=== PATIENT | female | born 1970 | race Caucasian/White ===

== ENCOUNTER 2020-02-19 13:14 | Emergency (ER) | payer BC, OTHER ==
[2020-02-19 13:20] VITALS: BP 152/72; PULSE 68; RESP 18; TEMP 98.5
[2020-02-19] MEDS ORDERED: NYSTATIN 100,000 UNIT/GM POWD 15 GM TOPICAL STA (13:46)
[2020-02-19] MEDS ORDERED: diphenhydrAMINE 50 MG/ML 1 ML VIAL IVP STA (13:53)
[2020-02-19 14:03] LABS: Basophils # (A) 0.1 k/uL (0-0.2); Basophils % (A) 1 %; Eosinophils # (A) 0.2 k/uL (0-0.7); Eosinophils % (A) 2 %; HCT 44.4 % (34.0-46.0); HGB 14.8 gm/dL (11.4-16.0); Lymphocytes # (A) 2.9 k/uL (1.0-4.8); Lymphocytes % (A) 33 %; MCHC 33.3 g/dL (31.0-37.0); MCV 93.1 fL (80.0-100.0); Mean Platelet Volume 9.3; Monocytes # (A) 0.4 k/uL (0-1.0); Monocytes % (A) 4 %; Neutrophils # (A) 5.2 k/uL (1.3-7.7); Neutrophils % (A) 58 %; Platelet Count 222 k/uL (150-450); RBC 4.77 m/uL (3.80-5.40); RDW 12.4 % (11.5-15.5); WBC 8.9 k/uL (3.8-10.6)
--- NOTE | 2020-02-19 14:08 | ED ---
General Adult HPI - General Source: patient, RN notes reviewed, old records reviewed Mode of arrival: ambulatory Limitations: no limitations <Alexei Phillips - Last Filed: 02/19/20 14:08> <Juju Diaz - Last Filed: 02/19/20 14:56> - General Chief complaint: Skin/Abscess/Foreign Body Stated complaint: Rash Time Seen by Provider: 02/19/20 13:29 - History of Present Illness Initial comments: 49-year-old female patient presents to the emergency department today for evaluation of rash. Patient states for the last week she has had a rash beneath the left breast and to the fold between her abdomen and upper thighs. Patient states the rash does itch and is also burning. Patient states that she did see her physician was given a Medrol Dosepak and a steroid cream to apply. Patient states her rash is worsened since using those medications. She denies any fevers or chills. Denies any new exposures including soaps, lotions, creams, detergents, foods, or medications. Patient does report being "prediabetic". Patient denies any recent rash, fever, chills, cough, shortness of breath, chest pain, abdominal pain, nausea, vomiting, diarrhea, constipation, back pain, numbness, tingling, dizziness, weakness, hematuria, dysuria, urinary urgency, urinary frequency, headache, visual changes, or any other complaints. (Juju Diaz) - Related Data Home Medications Medication Instructions Recorded Confirmed Citalopram Hydrobromide 20 mg PO DAILY 04/01/16 04/01/16 [Citalopram HBr] Hydrocodone/Acetaminophen [[place] 1 tab PO BID PRN 04/01/16 04/01/16 10-325] Metoprolol Tartrate 25 mg PO BID 04/01/16 04/01/16 Simvastatin [Zocor] 20 mg PO HS 04/01/16 04/01/16 lisinopriL [Zestril] 20 mg PO DAILY 04/01/16 04/01/16 metFORMIN HCL [Glucophage] 500 mg PO DAILY 04/01/16 04/01/16 Previous Rx's Medication Instructions Recorded hydrOXYzine HCL [Atarax] 50 mg PO QID PRN #30 tab 04/01/16 Nystatin 30 gm TP BID #30 cream..g. 02/19/20 Allergies Allergy/AdvReac Type Severity Reaction Status Date / Time ibuprofen Allergy Unknown Verified 04/01/16 00:19 Review of Systems ROS Other: All systems not noted in ROS Statement are negative. <Alexei Phillips - Last Filed: 02/19/20 14:08> ROS Other: All systems not noted in ROS Statement are negative. <Juju Diaz - Last Filed: 02/19/20 14:56> ROS Statement: Those systems with pertinent positive or pertinent negative responses have been documented in the HPI. Past Medical History Past Medical History: Hyperlipidemia, Hypertension Additional Past Medical History / Comment(s): Glaucoma History of Any Multi-Drug Resistant Organisms: None Reported Past Surgical History: Orthopedic Surgery Additional Past Surgical History / Comment(s): L knee sx Past Psychological History: No Psychological Hx Reported Smoking Status: Current every day smoker Past Alcohol Use History: Occasional Past Drug Use History: None Reported <Alexei Phillips - Last Filed: 02/19/20 14:08> General Exam Limitations: no limitations <Alexei Phillips - Last Filed: 02/19/20 14:08> General appearance: alert, in no apparent distress, other (Physical well-d eveloped, well-nourished adult female patient in no acute distress. Vital signs upon presentation are temperature 98.5F, pulse 68, respirations 18, blood pressure 152/72) Respiratory exam: Present: normal lung sounds bilaterally. Absent: respiratory distress, wheezes, rales, rhonchi, stridor Cardiovascular Exam: Present: regular rate, normal rhythm, normal heart sounds. Absent: systolic murmur, diastolic murmur, rubs, gallop, clicks Neurological exam: Present: alert, oriented X3, CN II-XII intact Psychiatric exam: Present: normal affect, normal mood Skin exam: Present: warm, dry, intact, normal color, rash (Erythematous flat rash noted to the skin fold between abdomen and thighs, there are satellite lesions surrounding. Similar rash noted to the area beneath the left breast, also satellite lesions noted. Lesions are nonvesicular and nontender petechial.) <Juju Diaz - Last Filed: 02/19/20 14:56> Course Vital Signs 02/19/20 13:15 Temperature 98.5 F Pulse Rate 68 Respiratory 18 Rate Blood Pressure 152/72 Medical Decision Making - Lab Data Result diagrams: 02/19/20 13:44 <Alexei Phillips - Last Filed: 02/19/20 14:08> - Lab Data Result diagrams: 02/19/20 13:44 02/19/20 13:44 <Juju Diaz - Last Filed: 02/19/20 14:56> - Medical Decision Making 49-year-old female patient presents to the emergency department today for evaluation of rash to the lower abdomen and thighs and to the left breast. Physical examination does reveal a flat erythematous rash between the skin folds of the abdomen and upper thighs as well as beneath the left breast. There are satellite lesions. Rash did worsen after steroids. We will treat as a fungal rash with nystatin cream and powder. She'll be discharged to follow-up with her primary care physician for recheck in 1-2 days. Return parameters were discussed in detail. She verbalizes understanding and agrees with this plan. (Juju Diaz) - Lab Data Lab Results 02/19/20 02/19/20 Range/Units 13:44 13:44 WBC 8.9 (3.8-10.6) k/uL RBC 4.77 (3.80-5.40) m/uL Hgb 14.8 (11.4-16.0) gm/dL Hct 44.4 (34.0-46.0) % MCV 93.1 (80.0-100.0) fL MCH 31.0 (25.0-35.0) pg MCHC 33.3 (31.0-37.0) g/dL RDW 12.4 (11.5-15.5) % Plt Count 222 (150-450) k/uL Neutrophils % 58 % Lymphocytes % 33 % Monocytes % 4 % Eosinophils % 2 % Basophils % 1 % Neutrophils # 5.2 (1.3-7.7) k/uL Lymphocytes # 2.9 (1.0-4.8) k/uL Monocytes # 0.4 (0-1.0) k/uL Eosinophils # 0.2 (0-0.7) k/uL Basophils # 0.1 (0-0.2) k/uL Sodium 139 (137-145) mmol/L Potassium 4.6 (3.5-5.1) mmol/L Chloride 104 (98-107) mmol/L Carbon Dioxide 23 (22-30) mmol/L Anion Gap 12 mmol/L BUN 11 (7-17) mg/dL Creatinine 0.80 (0.52-1.04) mg/dL Est GFR (CKD-EPI)AfAm >90 (>60 ml/min/1.73 sqM) Est GFR (CKD-EPI)NonAf 86 (>60 ml/min/1.73 sqM) Glucose 99 (74-99) mg/dL Calcium 10.4 H (8.4-10.2) mg/dL Total Bilirubin 0.8 (0.2-1.3) mg/dL AST 54 H (14-36) U/L ALT 56 H (4-34) U/L Alkaline Phosphatase 93 (38-126) U/L Total Protein 7.8 (6.3-8.2) g/dL Albumin 4.9 (3.5-5.0) g/dL Disposition <Alexei Phillips - Last Filed: 02/19/20 14:08> Is patient prescribed a controlled substance at d/c from ED?: No Time of Disposition: 14:47 <Juju Diaz - Last Filed: 02/19/20 14:56> Clinical Impression: Rash Disposition: HOME SELF-CARE Condition: Stable Instructions (If sedation given, give patient instructions): Acute Rash (ED) Additional Instructions: Apply cream three times per day. Follow up with your primary care physician for recheck in 1-2 days. Return to the emergency department immediately for any new, worsening, or concerning symptoms. Prescriptions: Nystatin 30 gm TP BID #30 cream..g. Referrals: Milan Bonds MD [Primary Care Provider] - 1-2 days
[2020-02-19 14:16] LABS: ALT 56 U/L (4-34); AST 54 U/L (14-36); African American GFR (CKD) >90 (>60 ml/min/1.73 sqM); Albumin 4.9 g/dL (3.5-5.0); Alkaline Phosphatase 93 U/L (38-126); Anion Gap 12 mmol/L; Blood Urea Nitrogen 11 mg/dL (7-17); Calcium 10.4 mg/dL (8.4-10.2); Carbon Dioxide 23 mmol/L (22-30); Chloride 104 mmol/L (98-107); Glucose 99 mg/dL (74-99); Non-African American GFR(CKD) 86 (>60 ml/min/1.73 sqM); Potassium 4.6 mmol/L (3.5-5.1); Sodium 139 mmol/L (137-145); Total Bilirubin 0.8 mg/dL (0.2-1.3); Total Protein 7.8 g/dL (6.3-8.2)
== END 2020-02-19 14:53 | disposition home or self-care (01) ==
LOC: EC 13:14
DX: R21 Rash and other nonspecific skin eruption (principal); I10 Essential (primary) hypertension; E78.5 Hyperlipidemia, unspecified; Z79.899 Other long term (current) drug therapy; Z79.84 Long term (current) use of oral hypoglycemic drugs; Z88.6 Allergy status to analgesic agent
CPT/HCPCS: 36415; 80053; 85025; 99283; 96374; J1200

== ENCOUNTER 2021-04-07 11:12 | Observation (INO) | payer OTHER ==
[2021-04-07] MEDS ORDERED: ASPIRIN 81 MG PO STA (11:49)
[2021-04-07 12:15] LABS: Basophils # (A) 0.1 k/uL (0-0.2); Basophils % (A) 1 %; Eosinophils # (A) 0.2 k/uL (0-0.7); Eosinophils % (A) 2 %; HGB 13.1 gm/dL (11.4-16.0); Lymphocytes # (A) 2.8 k/uL (1.0-4.8); Lymphocytes % (A) 35 %; MCH 31.2 pg (25.0-35.0); MCHC 32.8 g/dL (31.0-37.0); MCV 95.1 fL (80.0-100.0); Mean Platelet Volume 9.4; Monocytes # (A) 0.4 k/uL (0-1.0); Monocytes % (A) 5 %; Neutrophils # (A) 4.3 k/uL (1.3-7.7); Neutrophils % (A) 55 %; Platelet Count 181 k/uL (150-450); RBC 4.21 m/uL (3.80-5.40); WBC 7.8 k/uL (3.8-10.6)
[2021-04-07 12:16] LABS: Appearance,Urine Clear (Clear); Bilirubin,Urine Negative (Negative); Blood,Urine Negative (Negative); Color,Urine Light Yellow; Glucose,Urine (UA) Negative (Negative); Ketones,Urine Negative (Negative); Leukocyte Esterase,Urine Negative (Negative); Nitrite,Urine Negative (Negative); PH, Urine 5.5 (5.0-8.0); Protein,Urine Negative (Negative); Specific Gravity,Urine 1.002 (1.001-1.035); Urobilinogen,Urine <2.0 mg/dL (<2.0)
--- NOTE | 2021-04-07 12:29 | XR ---
EXAMINATION TYPE: XR chest 2V DATE OF EXAM: 04/07/2021 COMPARISON: NONE HISTORY: Shortness of breath TECHNIQUE: Frontal and lateral views of the chest are obtained. FINDINGS: Scattered senescent parenchymal changes noted. Hyperinflation compatible with COPD. No evidence for infiltrate. No evidence for atelectasis. Heart size is stable. Mediastinal structures are stable and grossly unremarkable. No evidence for hilar prominence. Degenerative changes dorsal spine. IMPRESSION: 1. No evidence for acute pulmonary disease.
--- NOTE | 2021-04-07 12:37 | ED ---
Chest Pain HPI - General Chief Complaint: Chest Pain Stated Complaint: Chest discomfort Time Seen by Provider: 04/07/21 11:32 Source: patient, RN notes reviewed, old records reviewed Mode of arrival: ambulatory Limitations: no limitations - History of Present Illness Initial Comments: Patient is a 50-year-old female with history of hypertension, hyperlipidemia, presenting to the emergency Department with complaints of intermittent chest discomfort over the past 4 days. She states she noticed some pain in her left upper back about 4 days ago that sometimes radiates into her chest. She states she feels intermittent very sharp chest pains over the past couple days. She states the pains last a few seconds and go away. There is no alleviating or aggravating factors. She did have a stress test many years ago with no abnormal findings. No history of heart disease. She is a smoker. She does admit to some mild nausea over the past couple days and just "not feeling right." Her appetite has been the same, no fevers or cough. No abdominal pain. She has no further complaints at this time. Upon arrival to the ER, blood pressure was elevated at 178/116, rest of vitals normal. - Related Data Home Medications Medication Instructions Recorded Confirmed Hydrocodone/Acetaminophen [[place] 1 tab PO BID PRN 04/01/16 04/07/21 10-325] Metoprolol Tartrate 25 mg PO BID 04/01/16 04/07/21 metFORMIN HCL [Glucophage] 500 mg PO BID 04/01/16 04/07/21 Cetirizine HCl 10 mg PO DAILY 04/07/21 04/07/21 Latanoprost [Xalatan 0.005%] 1 drop BOTH EYES HS 04/07/21 04/07/21 Levothyroxine Sodium [Synthroid] 75 mcg PO DAILY 04/07/21 04/07/21 Losartan Potassium 100 mg PO DAILY 04/07/21 04/07/21 Montelukast Sodium [Singulair] 10 mg PO HS 04/07/21 04/07/21 Omeprazole [PriLOSEC] 20 mg PO DAILY 04/07/21 04/07/21 PARoxetine HCL [Paxil] 20 mg PO DAILY 04/07/21 04/07/21 Allergies Allergy/AdvReac Type Severity Reaction Status Date / Time ibuprofen Allergy Unknown Verified 04/07/21 12:52 Review of Systems ROS Statement: Those systems with pertinent positive or pertinent negative responses have been documented in the HPI. ROS Other: All systems not noted in ROS Statement are negative. EKG Findings - EKG Comments: EKG Findings:: Normal sinus rhythm, normal ECG, no signs of acute ST segment elevation. Ventricular rate 60, PA interval 154, QT 406. Past Medical History Past Medical History: Hyperlipidemia, Hypertension Additional Past Medical History / Comment(s): Glaucoma History of Any Multi-Drug Resistant Organisms: None Reported Past Surgical History: Orthopedic Surgery Additional Past Surgical History / Comment(s): L knee sx Past Psychological History: No Psychological Hx Reported Smoking Status: Former smoker Past Alcohol Use History: Occasional Past Drug Use History: None Reported General Exam - General Exam Comments Initial Comments: GENERAL: Patient is well-developed and well-nourished. Patient is nontoxic and in no acute distress. HEAD: Atraumatic, normocephalic. EYES: Pupils equal round and reactive to light, extraocular movements intact, sclera anicteric, conjunctiva are normal. Eyelids were unremarkable. ENT: Nares patent, oropharynx clear without exudates. Moist mucous membranes. NECK: Normal range of motion, supple without lymphadenopathy or JVD. LUNGS: Unlabored respirations. Breath sounds clear to auscultation bilaterally and equal. No wheezes rales or rhonchi. HEART: Regular rate and rhythm without murmurs, rubs or gallops. ABDOMEN: Soft, nontender, normoactive bowel sounds. No guarding, no rebound. No masses appreciated. MUSCULOSKELETAL: Normal extremities with adequate strength and normal range of motion, no pitting or edema. No clubbing or cyanosis. NEUROLOGICAL: Patient is alert and oriented x 3. Symmetrical smile. Normal speech, normal gait. PSYCH: Normal mood, normal affect. SKIN: Warm, Dry, normal turgor, no rashes or lesions noted. Limitations: no limitations Course Vital Signs 04/07/21 04/07/21 04/07/21 11:17 11:40 13:05 Temperature 98 F Pulse Rate 60 59 L 58 L Respiratory 18 18 18 Rate Blood Pressure 178/116 164/99 140/85 O2 Sat by Pulse 99 98 [address] [facility] Patient is a 50-year-old female history of hypertension, presenting from intermittent chest pains over the past 4 days. No shortness of breath, no fevers. She did arrive slightly hypertensive but otherwise vitals normal. EKG reads normal sinus rhythm. This x-ray showed no acute process, labs are unremarkable including a normal troponin, normal d-dimer. Covid test is negative. Patient be admitted for chest pain rule out, serial troponins. Patient is agreeable to this plan of care. Patient accepted by Dr. Reddy, with cardio consult. Case discussed with Dr. Larson. Disposition Clinical Impression: Chest pain Disposition: ADMITTED IP TO THIS HOSP Condition: Stable Referrals: Milan Bonds MD [Primary Care Provider] - 1-2 days Decision Date: 04/07/21 Decision Time: 13:11
[2021-04-07 12:43] LABS: INR 0.9 (<1.2); Partial Thromboplastin Time 22.3 sec (22.0-30.0); Prothrombin Time 9.5 sec (9.0-12.0)
[2021-04-07 12:45] LABS: ALT 71 U/L (4-34); AST 51 U/L (14-36); African American GFR (CKD) >90 (>60 ml/min/1.73 sqM); Albumin 4.2 g/dL (3.5-5.0); Alkaline Phosphatase 71 U/L (38-126); Anion Gap 9 mmol/L; Blood Urea Nitrogen 8 mg/dL (7-17); Calcium 9.9 mg/dL (8.4-10.2); Carbon Dioxide 22 mmol/L (22-30); Chloride 107 mmol/L (98-107); Glucose 95 mg/dL (74-99); Magnesium 1.8 mg/dL (1.6-2.3); Non-African American GFR(CKD) >90 (>60 ml/min/1.73 sqM); Potassium 4.8 mmol/L (3.5-5.1); Sodium 138 mmol/L (137-145); Total Bilirubin 0.4 mg/dL (0.2-1.3); Total Protein 6.8 g/dL (6.3-8.2)
[2021-04-07] MEDS ORDERED: NITROGLYCERIN SL TABS 0.4 MG TAB SUBLINGUAL PRN (13:11)
--- NOTE | 2021-04-07 16:35 | ECHOF ---
Referral Reason:chest pain MEASUREMENTS -------- HEIGHT: 162.6 cm WEIGHT: 73.5 kg BP: RVIDd: 2.3 cm (< 3.3) IVSd: 0.9 cm (0.6 - 1.1) LVIDd: 4.5 cm (3.9 - 5.3) LVPWd: 1.2 cm (0.6 - 1.1) IVSs: 1.2 cm LVIDs: 3.4 cm LVPWs: 1.4 cm LA Diam: 3.4 cm (2.7 - 3.8) LAESV Index (A-L): 19.79 ml/m Ao Diam: 2.7 cm (2.0 - 3.7) AV Cusp: 1.6 cm (1.5 - 2.6) LA Diam: 3.7 cm (2.7 - 3.8) MV EXCURSION: 19.089 mm (> 18.000) MV EF SLOPE: 107 mm/s (70 - 150) EPSS: 0.3 cm MV E Blane: 0.68 m/s MV DecT: 259 ms MV A Blane: 0.78 m/s MV E/A Ratio: 0.87 RAP: 5.00 mmHg RVSP: 12.23 mmHg FINDINGS -------- Sinus rhythm. This was a technically good study. LV size, wall thickness and systolic function are normal, with an EF greater than 55%. The left aimee tricular size is normal. The right ventricle is normal in size. Normal LA size by volume 22+/-6 ml/m2. The right atrial size is normal. The aortic valve is trileaflet, and appears structurally normal. No aortic stenosis or regurgitation. Mild mitral regurgitation is present. Mild tricuspid regurgitation present. Right ventricular systolic pressure is normal at < 35 mmHg. There is no pulmonic regurgitation present. CONCLUSIONS -------- 1. LV size, wall thickness and systolic function are normal, with an EF greater than 55%. 2. The left ventricular size is normal. 3. The right ventricle is normal in size. 4. Normal LA size by volume 22+/-6 ml/m2. 5. The right atrial size is normal. 6. The aortic valve is trileaflet, and appears structurally normal. No aortic stenosis or regurgitati on. 7. Mild mitral regurgitation is present. 8. Mild tricuspid regurgitation present. 9. There is no pulmonic regurgitation present. [employer] MEDIA SPECIALIST: Gavi Rivero RDCS
[2021-04-07] MEDS ORDERED: NALOXONE 0.4 MG/ML 1 ML VIAL IV PRN (16:46)
[2021-04-07] MEDS ORDERED: ONDANSETRON 4 MG/2 ML VIAL IVP PRN (16:46)
--- NOTE | 2021-04-07 16:46 | P.HPIM ---
History of Present Illness H&P Date: 04/07/21 Chief Complaint: chest pain Patient is a 50-year-old female with a past medical history of prediabetes on metformin, dyslipidemia, and hypertension who presented with complaints of back and chest pain. The ER she underwent an extensive evaluation. EKG demonstrated normal sinus rhythm at a rate of [address]-T wave changes. Initial troponin was negative and chest x-ray showed no acute process. She was placed in chest pain. Patient seen and examined at bedside in the ER. She reports that approximately 4 days ago she started having some back pain behind her left shoulder. It has now been radiating around to the left side of her chest. It is associated with some nausea, sweating, dizziness, and bilateral hand numbness. She denies feeli ng as though she is going to pass out. She stated started upon waking. It has been there constantly for 4 days but does wax and wane in intensity. She has not noticed anything that makes it better or worse such as eating or taking medications. She denies any family history of coronary artery disease. She does have some chronic diarrhea. She stopped smoking 1-1/2 weeks ago. 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 She does take all medications as prescribed. She is a history of low back pain but no history of osteoarthritis of the neck. Pertinent positives and negatives as discussed in HPI, a complete review of systems was performed and all other systems are negative. General: non toxic, no distress, appears at stated age Derm: warm, dry Head: atraumatic, normocephalic, symmetric Eyes: EOMI, no lid lag, anicteric sclera, pupils equal round reactive to light ENT: Nose and ears atraumatic, no thrush, no pharyngeal erythema Neck: No thyromegaly, no cervical lymphadenopathy, trachea midline, supple Mouth: no lip lesion, mucus membranes moist Cardiovascular: S1S2 reg, no murmur, positive posterior tibial pulse bilateral, no edema, capillary refill less than 2 seconds Lungs: clear to ascultation bilateral, no ronchi, no rales, no wheeze, no accessory muscle use Abdominal: soft, nontender to palpation, no guarding, no appreciable organomegaly, normal bowel sounds Ext: no gross muscle atrophy, muscle strength muscle strength 5 out of 5 in all 4 extremities, no contractures Neuro: CN II-XI grossly intact, light touch intact all 4 extremities, finger to nose within normal limits, Psych: Alert, oriented, appropriate affect Atypical chest pain -Does not appear to be cardiac in nature however patient does have risk factors of prediabetes/hypertension/dyslipidemia -Troponin negative 2 -Aspirin, statin -Cardiology consult -Nothing by mouth after midnight Hypertension, accelerated diastolic on arrival -Resume home losartan and metoprolol -Follow blood pressures Dyslipidemia -Check lipid profile -Not currently on statin medication Hypothyroidism -Synthroid Prediabetes -Hold Glucophage -Insulin sliding scale Transaminitis - chronic - follow ast/alt on outpatient basis The patient is placed in observation with an anticipated less than 2 midnight stay for evaluation of chest pain. DVT prophylaxis: Early ambulation Discussed with: Patient, nursing Anticipated discharge date: In a.m. Anticipated discharge place: Home A total of 35 minutes was spent on the care of this complex patient more than 50% of the time was spent in counseling and care coordination. Past Medical History Past Medical History: Hyperlipidemia, Hypertension Additional Past Medical History / Comment(s): Glaucoma, prediabetes, chronic low back pain History of Any Multi-Drug Resistant Organisms: None Reported Past Surgical History: Orthopedic Surgery Additional Past Surgical History / Comment(s): L knee sx Past Psychological History: No Psychological Hx Reported Smoking Status: Former smoker Past Alcohol Use History: Occasional Past Drug Use History: None Reported - Past Family History Father Family Medical History: Cancer (lung cancer) Medications and Allergies Home Medications Medication Instructions Recorded Confirmed Type Hydrocodone/Acetaminophen [[place] 1 tab PO BID PRN 04/01/16 04/07/21 History 10-325] Metoprolol Tartrate 25 mg PO BID 04/01/16 04/07/21 History metFORMIN HCL [Glucophage] 500 mg PO BID 04/01/16 04/07/21 History Cetirizine HCl 10 mg PO DAILY 04/07/21 04/07/21 History Latanoprost [Xalatan 0.005%] 1 drop BOTH EYES HS 04/07/21 04/07/21 History Levothyroxine Sodium [Synthroid] 75 mcg PO DAILY 04/07/21 04/07/21 History Losartan Potassium 100 mg PO DAILY 04/07/21 04/07/21 History Montelukast Sodium [Singulair] 10 mg PO HS 04/07/21 04/07/21 History Omeprazole [PriLOSEC] 20 mg PO DAILY 04/07/21 04/07/21 History PARoxetine HCL [Paxil] 20 mg PO DAILY 04/07/21 04/07/21 History Allergies Allergy/AdvReac Type Severity Reaction Status Date / Time ibuprofen Allergy Unknown Verified 04/07/21 12:52 Physical Exam Osteopathic Statement: *. No significant issues noted on an osteopathic structural exam other than those noted in the History and Physical/Consult. Vitals: Vital Signs Temp Pulse Resp BP Pulse Ox 04/07/21 15:51 60 18 150/80 97 04/07/21 13:05 58 L 18 140/85 98 04/07/21 11:40 59 L 18 164/99 98 04/07/21 11:17 98 F 60 18 178/116 99 Intake and Output 04/07/21 04/07/21 04/07/21 06:59 14:59 22:59 Other: Weight 73.482 kg Results CBC & Chem 7: 04/07/21 11:55 04/07/21 11:55 Labs: Abnormal Lab Results - Last 24 Hours (Table) 04/07/21 Range/Units 11:55 AST 51 H (14-36) U/L ALT 71 H (4-34) U/L
[2021-04-07] MEDS ORDERED: HYDROcodone/APAP 10-325MG 1 EACH TAB PO PRN (16:47)
[2021-04-07 17:16] LABS: Glucose,Whole Blood 80 mg/dL (75-99)
[2021-04-07] MEDS: INSULIN ASPART (NovoLOG) 100 UNIT/ML VIAL SQ SCH ×2 (18:12→20:18)
--- NOTE | 2021-04-07 19:52 | CONS ---
CONSULTATION CHIEF COMPLAINT: Chest pain. This is a 50-year-old lady with history of hypothyroidism, cga-[id number]-[id number] diabetes and hypertension who presents to hospital complaining of chest pain. Her chest discomfort is sharp, precordial, mild in intensity, with no definite radiation to neck, arm or back. It is not associated with diaphoresis. There are no clear-cut relieving or exacerbating factors. An EKG in the emergency room showed normal sinus rhythm and was within normal limits. An echocardiogram showed normal LV systolic function with mild mitral regurgitation. PAST MEDICAL HISTORY: Significant for hypertension, hypothyroidism and diabetes. MEDICATIONS: Medications at home included Xalatan, Paxil, [place], losartan, Synthroid, Glucophage, Prilosec, metoprolol and Singulair. ALLERGIES: IBUPROFEN. FAMILY HISTORY: Negative for premature coronary artery disease. SOCIAL HISTORY: Negative for smoking, EtOH abuse or drug abuse. REVIEW OF SYSTEMS: HEENT is unremarkable. CARDIAC: As described above. RESPIRATORY: Negative. GI: Negative. GENITOURINARY: Negative. ALLERGY/IMMUNOLOGY: Negative. SKIN: Negative. MUSCULOSKELETAL: Significant for arthritis. PSYCHOSOCIAL: Negative. ENDOCRINE: Negative. DERMATOLOGY: Negative. CONSTITUTIONAL: Negative. ONCOLOGICAL: Negative. FABRIC DESIGNER: Negative. Rest of the system review is not relevant. PHYSICAL EXAMINATION: Heart rate is 60 beats per minute. Blood pressure is 150/82. Respiratory rate is 18. O2 saturation is 97% on room air. There is no jugular venous distention. Carotid upstroke is normal. There is no bruit. Chest exam reveals good air entry bilaterally. Heart exam reveals first and second heart sounds. No gallop. No murmur. No rub. Abdomen is soft, non-tender. Examination of extremities did not reveal any edema. Peripheral pulses are felt. LABS: Hemoglobin is 13.1, platelet count is 180. Potassium is 4.8, creatinine is 0.6. AST and ALT are slightly elevated. Troponin is negative. D-dimer is normal. ASSESSMENT: 1. Precordial chest pain. Rule out CAD. 2. Hypertension. 3. Diabetes. PLAN: I am going to schedule the patient for a stress echo tomorrow. If this is negative, she can be discharged home and have an outpatient followup through my office. MMODL / IJN: [id number] /
[2021-04-07 20:17] LABS: Glucose,Whole Blood 144 mg/dL (75-99)
[2021-04-07 20:17] LABS: Glucose,Whole Blood 129 mg/dL (75-99)
[2021-04-07] MEDS: METOPROLOL TARTRATE 25 MG TAB PO SCH (20:19)
[2021-04-07] MEDS ORDERED: LATANOPROST 0.005% OPHTH DROPS 2.5 ML BTL BOTH EYES SCH (21:00)
[2021-04-07] MEDS ORDERED: MONTELUKAST 10 MG TAB PO SCH (21:00)
[2021-04-08] MEDS ORDERED: LEVOTHYROXINE 75 MCG TAB PO SCH (06:30)
[2021-04-08 07:10] LABS: Glucose,Whole Blood 96 mg/dL (75-99)
[2021-04-08] MEDS ORDERED: PANTOPRAZOLE 40 MG TABLET PO SCH (07:30)
[2021-04-08 07:47] VITALS: BP 121/77; PULSE 63; RESP 18; TEMP 97.8
[2021-04-08] MEDS: INSULIN ASPART (NovoLOG) 100 UNIT/ML VIAL SQ SCH (07:55)
[2021-04-08] MEDS ORDERED: ASPIRIN 325 MG TAB PO SCH (09:00)
[2021-04-08] MEDS ORDERED: LOSARTAN 50 MG TAB PO SCH (09:00)
[2021-04-08] MEDS ORDERED: LORATADINE 10 MG TAB PO SCH (09:00)
[2021-04-08] MEDS ORDERED: PARoxetine 20 MG TAB PO SCH (09:00)
--- NOTE | 2021-04-08 10:44 | P.PN ---
Subjective Progress Note Date: 04/08/21 HISTORY OF PRESENT ILLNESS: Patient examined this morning. Patient denies chest pain or pressure. She denies shortness of breath. Vital signs are stable. Echocardiogram completed reveals ejection fraction 55%, mild mitral regurgitation, mild tricuspid regurgitation. PHYSICAL EXAM: VITAL SIGNS: Reviewed. GENERAL: Well-developed in no acute distress. NECK: Supple. No JVD or thyromegaly LUNGS: Respirations even and unlabored. Lungs essentially clear to auscultation bilaterally. HEART: Regular rate and rhythm. S1 and S2 heard. EXTREMITIES: Normal range of motion. No clubbing or cyanosis. Peripheral pulses intact. No lower extremity edema ASSESSMENT: Chest pain Hypertension Diabetes PLAN: Continue current cardiac medications Patient to undergo stress echocardiogram today. If negative she may be dis charged home. Nurse practitioner note has been reviewed by physician. Signing provider agrees with the documented findings, assessment, and plan of care. Objective - Vital Signs Vital signs: Vital Signs Temp 97.8 F 04/08/21 07:00 Pulse 63 04/08/21 07:00 Resp 18 04/08/21 07:00 BP 121/77 04/08/21 07:00 Pulse Ox 97 04/08/21 07:00 Intake & Output 04/07/21 04/08/21 04/08/21 18:59 06:59 18:59 Weight 73.482 kg 73.48 kg Other: # Voids 1 4 - Labs CBC & Chem 7: 04/07/21 11:55 04/07/21 11:55 Labs: Abnormal Lab Results - Last 24 Hours (Table) 04/07/21 04/07/21 04/07/21 Range/Units 11:55 20:14 20:15 POC Glucose (mg/dL) 144 H 129 H (75-99) mg/dL AST 51 H (14-36) U/L ALT 71 H (4-34) U/L
[2021-04-08 11:02] LABS: Chol/HDL Ratio 4.07 Ratio; LDL Cholesterol,Calculated 93.6 mg/dL (0.0-131.0); VLDL Calculation 47.4 mg/dL (5.00-40.00)
[2021-04-08] MEDS: METOPROLOL TARTRATE 25 MG TAB PO SCH (11:26)
[2021-04-08 12:21] LABS: Glucose,Whole Blood 188 mg/dL (75-99)
--- NOTE | 2021-04-08 14:43 | ECHOS ---
STRESS ECHOCARDIOGRAM INDICATIONS: Chest pain. BASELINE HEART RATE: 55 BASELINE BLOOD PRESSURE: 112/54 MAXIMUM HEART RATE: 155 MAXIMUM BLOOD PRESSURE: 179/114 85% MPHR: 143 100% MPHR: 168 METS: 9.7 MAXIMUM STAGE REACHED: 3 TOTAL EXERCISE TIME: 8:10 CLINICAL INFORMATION: Baseline EKG shows sinus rhythm, normal axis, normal intervals. Patient exercised on Marques protocol for a total of 8 minutes, achieving 9 METS, 92% of predicted maximal heart rate, without chest pain or diagnostic ST-segment depression. Baseline echo shows normal left ventricular size, wall motion and systolic function. Post exercise there is normal hyperdynamic response of all segments of myocardium noted. CONCLUSIONS: 1. Good exercise tolerance. 2. Negative stress test by EKG criteria. 3. Negative stress echo. [email or web address] / IJN: [id number] /
--- NOTE | 2021-04-08 20:10 | P.DS ---
Providers Date of admission: 04/07/21 12:24 Expected date of discharge: 04/08/21 Attending physician: Lucia Mcdonough DO Consults: 04/07/21 13:11 Consult Physician Urgent Consulting Provider: [facility] Consult Reason/Comments: chest pain Do you want consulting provider notified?: Yes Primary care physician: [facility] Course: Discharge Diagnosis: Thoracic strain atypical chest pain Hypertension, accelerated diastolic on arrival Dyslipidemia Hypothyroidism Prediabetes Transaminitis Hospital Course: Patient is a 50-year-old female with a past medical history of prediabetes on metformin, dyslipidemia, and hypertension who presented with complaints of back and chest pain. The ER she underwent an extensive evaluation. EKG demonstrated normal sinus rhythm at a rate of [address]-T wave changes. Initial troponin was negative and chest x-ray showed no acute process. She was placed in chest pain. She underwent stress echo which showed good exercise tolerance and was negative via EKG and echo criteria. Resting echo demonstrated an EF of greater than 55% to significant valvular disease. She was determined stable for discharge home. She was cleared by cardiology. It was felt that should they have musculoskeletal strain. Follow-up: Tizanidine and Medrol Dosepak follow-up with PCP next week. Patient seen and examined at bedside. She continues to have left-sided scapular and thoracic pain. No additional chest pain. No nausea or vomiting. We discussed that this is likely musculoskeletal strain. She will take a Medrol Dosepak as well as tizanidine to help. Vital signs reviewed and stable. General: non toxic, no distress, appears at stated age Derm: warm, dry Head: atraumatic, normocephalic, symmetric Eyes: EOMI, no lid lag, anicteric sclera Mouth: no lip lesion, mucus membranes moist Cardiovascular: S1S2 reg, no murmur, positive posterior tibial pulse bilateral, Lungs: CTA bilateral, no rhonchi, no rales , no accessory muscle use Abdominal: soft, nontender to palpation, no guarding, no appreciable organomegaly Ext: no gross muscle atrophy, no edema, no contractures Neuro: CN II-XI grossly intact, no focal neuro deficits Psych: Alert, oriented, appropriate affect A total of 25 minutes of time were spent preparing this complex discharge summary . Patient Condition at Discharge: Stable Plan - Discharge Summary Discharge Rx Participant: No New Discharge Prescriptions: New methylPREDNISolone Dose Pack [Medrol Dose Pack] 4 mg PO DIRECTED #1 packet tiZANidine [Zanaflex] 2 mg PO Q6HR PRN #12 tab PRN Reason: Muscle Spasm Continue Metoprolol Tartrate 25 mg PO BID Hydrocodone/Acetaminophen [[place] 10-325] 1 tab PO BID PRN PRN Reason: Pain metFORMIN HCL [Glucophage] 500 mg PO BID Latanoprost [Xalatan 0.005%] 1 drop BOTH EYES HS Omeprazole [PriLOSEC] 20 mg PO DAILY PARoxetine HCL [Paxil] 20 mg PO DAILY Montelukast Sodium [Singulair] 10 mg PO HS Losartan Potassium 100 mg PO DAILY Levothyroxine Sodium [Synthroid] 75 mcg PO DAILY Cetirizine HCl 10 mg PO DAILY Discharge Medication List Hydrocodone/Acetaminophen [[place] 10-325] 1 tab PO BID PRN 04/01/16 [History] Metoprolol Tartrate 25 mg PO BID 04/01/16 [History] metFORMIN HCL [Glucophage] 500 mg PO BID 04/01/16 [History] Cetirizine HCl 10 mg PO DAILY 04/07/21 [History] Latanoprost [Xalatan 0.005%] 1 drop BOTH EYES HS 04/07/21 [History] Levothyroxine Sodium [Synthroid] 75 mcg PO DAILY 04/07/21 [History] Losartan Potassium 100 mg PO DAILY 04/07/21 [History] Montelukast Sodium [Singulair] 10 mg PO HS 04/07/21 [History] Omeprazole [PriLOSEC] 20 mg PO DAILY 04/07/21 [History] PARoxetine HCL [Paxil] 20 mg PO DAILY 04/07/21 [History] methylPREDNISolone Dose Pack [Medrol Dose Pack] 4 mg PO DIRECTED #1 packet 04/08/21 [Rx] tiZANidine [Zanaflex] 2 mg PO Q6HR PRN #12 tab 04/08/21 [Rx] Follow up Appointment(s)/Referral(s): Milan Bonds MD [Primary Care Provider] - 1-2 days Patient Instructions/Handouts: Muscle Strain (DC) Activity/Diet/Wound Care/Special Instructions: Activity: as tolerated Diet: heart healthy Discharge Disposition: HOME SELF-CARE
== END 2021-04-08 13:50 | disposition home or self-care (01) ==
LOC: EC 11:12 → 6NMEDSUR 12:24
PROVIDERS: ADMIT Internal Medicine; ATTEND Internal Medicine
DX: S29.012A Strain of muscle and tendon of back wall of thorax, initial encounter (principal); R07.89 Other chest pain; I10 Essential (primary) hypertension; I08.1 Rheumatic disorders of both mitral and tricuspid valves; R73.03 Prediabetes; R20.0 Anesthesia of skin; E78.5 Hyperlipidemia, unspecified; H40.9 Unspecified glaucoma; E03.9 Hypothyroidism, unspecified; R74.01 Elevation of levels of liver transaminase levels; G89.29 Other chronic pain; M54.50 Low back pain, unspecified; K52.9 Noninfective gastroenteritis and colitis, unspecified; Z20.822 Contact with and (suspected) exposure to COVID-19; Z79.84 Long term (current) use of oral hypoglycemic drugs; Z79.890 Hormone replacement therapy; Z79.899 Other long term (current) drug therapy; Z88.6 Allergy status to analgesic agent; Z87.891 Personal history of nicotine dependence; Z98.890 Other specified postprocedural states; Z80.1 Family history of malignant neoplasm of trachea, bronchus and lung
CPT/HCPCS: 99285; 36415; 93005; 93306; 93351; 85379; 83880; 80061; 80053; 83735; 84484; 85025; 85610; 85730; 81003; 87635; 71046; G0378 ×2

== ENCOUNTER 2022-02-11 12:27 | Emergency (ER) | payer OTHER ==
[2022-02-11 12:37] VITALS: BP 128/83; PULSE 65; RESP 16; TEMP 98.1
--- NOTE | 2022-02-11 14:39 | ED ---
General Adult HPI - General Chief complaint: Chest Pain Stated complaint: SOB, lt arm pain/numbness Time Seen by Provider: 02/11/22 13:23 Source: patient, RN notes reviewed, old records reviewed Mode of arrival: ambulatory Limitations: no limitations - History of Present Illness Initial comments: This is a 51-year-old female presents emergency Department complaining that she's had a lot of joint achiness and had some left-sided chest pain for the last 4 days. Patient states the pain is sharp in nature almost like a shock and radiates into her left arm. Patient states the pain only last 1-2 seconds and there is no associated diaphoresis or shortness of breath with the pain. Patient denies any nausea. Patient denies any chest pain currently. Patient denies any abdominal pain patient denies nausea vomiting or diarrhea. Patient denies any headache patient denies any lightheadedness or dizziness. - Related Data Home Medications Medication Instructions Recorded Confirmed Hydrocodone/Acetaminophen [[place] 1 tab PO BID PRN 04/01/16 04/07/21 10-325] Metoprolol Tartrate 25 mg PO BID 04/01/16 04/07/21 metFORMIN HCL [Glucophage] 500 mg PO BID 04/01/16 04/07/21 Cetirizine HCl 10 mg PO DAILY 04/07/21 04/07/21 Latanoprost [Xalatan 0.005%] 1 drop BOTH EYES HS 04/07/21 04/07/21 Levothyroxine Sodium [Synthroid] 75 mcg PO DAILY 04/07/21 04/07/21 Losartan Potassium 100 mg PO DAILY 04/07/21 04/07/21 Montelukast Sodium [Singulair] 10 mg PO HS 04/07/21 04/07/21 Omeprazole [PriLOSEC] 20 mg PO DAILY 04/07/21 04/07/21 PARoxetine HCL [Paxil] 20 mg PO DAILY 04/07/21 04/07/21 Previous Rx's Medication Instructions Recorded methylPREDNISolone Dose Pack 4 mg PO DIRECTED #1 packet 04/08/21 [Medrol Dose Pack] tiZANidine [Zanaflex] 2 mg PO Q6HR PRN #12 tab 04/08/21 Allergies Allergy/AdvReac Type Severity Reaction Status Date / Time ibuprofen Allergy Unknown Verified 02/11/22 12:37 Review of Systems ROS Statement: Those systems with pertinent positive or pertinent negative responses have been documented in the HPI. ROS Other: All systems not noted in ROS Statement are negative. Past Medical History Past Medical History: Hyperlipidemia, Hypertension Additional Past Medical History / Comment(s): Glaucoma, prediabetes, chronic low back pain, thyroid disorder History of Any Multi-Drug Resistant Organisms: None Reported Past Surgical History: Orthopedic Surgery Additional Past Surgical History / Comment(s): L knee sx Past Psychological History: No Psychological Hx Reported Smoking Status: Former smoker Past Alcohol Use History: Occasional Past Drug Use History: None Reported - Past Family History Father Family Medical History: Cancer General Exam - General Exam Comments Initial Comments: GENERAL: Patient is well-developed and well-nourished. Patient is nontoxic and well- hydrated and is in no acute distress. ENT: Neck is soft and supple. No significant lymphadenopathy is noted. Oropharynx is clear. Moist mucous membranes. Neck has full range of motion without e liciting any pain. EYES: The sclera were anicteric and conjunctiva were pink and moist. Extraocular movements were intact and pupils were equal round and reactive to light. Eyelids were unremarkable. PULMONARY: Unlabored respirations. Good breath sounds bilaterally. No audible rales rhonchi or wheezing was noted. CARDIOVASCULAR: There is a regular rate and rhythm without any murmurs gallops or rubs. ABDOMEN: Soft and nontender with normal bowel sounds. SKIN: Skin is clear with no lesions or rashes and otherwise unremarkable. NEUROLOGIC: Patient is alert and oriented x3. Cranial nerves II through XII are grossly intact. Motor and sensory are also intact. Normal speech, volume and content. Symmetrical smile. MUSCULOSKELETAL: Normal extremities with adequate strength and full range of motion. LYMPHATICS: No significant lymphadenopathy is noted PSYCHIATRIC: Normal psychiatric evaluation. Limitations: no limitations Course Vital Signs 02/11/22 12:33 Temperature 98.1 F Pulse Rate 65 Respiratory 16 Rate Blood Pressure 128/83 O2 Sat by Pulse 99 Oximetry Medical Decision Making - Medical Decision Making EKG shows sinus rhythm at 65 bpm MS interval 150 QRS is 70 QT interval 390 QTC is 49. Patient's EKG shows no ST segment patient of depression. Chest x-ray had no acute abnormality. I went back in and reevaluated the patient she was not having any pain throughout her ED stay. Patient had slight elevation in her potassium and told to follow-up with her primary medical care doctor for this. I gave the patient a prescription to have her potassium redrawn on Sunday - Lab Data Result diagrams: 02/11/22 14:30 02/11/22 14:30 Lab Results 02/11/22 02/11/22 02/11/22 Range/Units 14:28 14:28 14:30 WBC 6.3 (3.8-10.6) k/uL RBC 4.27 (3.80-5.40) m/uL Hgb 12.9 (11.4-16.0) gm/dL Hct 40.0 (34.0-46.0) % MCV 93.6 (80.0-100.0) fL MCH 30.2 (25.0-35.0) pg MCHC 32.3 (31.0-37.0) g/dL RDW 12.1 (11.5-15.5) % Plt Count 173 (150-450) k/uL MPV 9.2 Neutrophils % 48 % Lymphocytes % 41 % Monocytes % 4 % Eosinophils % 3 % Basophils % 1 % Neutrophils # 3.0 (1.3-7.7) k/uL Lymphocytes # 2.6 (1.0-4.8) k/uL Monocytes # 0.3 (0-1.0) k/uL Eosinophils # 0.2 (0-0.7) k/uL Basophils # 0.1 (0-0.2) k/uL Sodium (137-145) mmol/L Potassium (3.5-5.1) mmol/L Chloride (98-107) mmol/L Carbon Dioxide (22-30) mmol/L Anion Gap mmol/L BUN (7-17) mg/dL Creatinine (0.52-1.04) mg/dL Est GFR (CKD-EPI)AfAm (>60 ml/min/1.73 sqM) Est GFR (CKD-EPI)NonAf (>60 ml/min/1.73 sqM) Glucose (74-99) mg/dL Calcium (8.4-10.2) mg/dL Magnesium (1.6-2.3) mg/dL Total Bilirubin (0.2-1.3) mg/dL AST (14-36) U/L ALT (4-34) U/L Alkaline Phosphatase (38-126) U/L Troponin I (0.000-0.034) ng/mL Total Protein (6.3-8.2) g/dL Albumin (3.5-5.0) g/dL Urine Color Light Yellow Urine Appearance Clear (Clear) Urine pH 6.5 (5.0-8.0) Ur Specific [place] 1.010 (1.001-1.035) Urine Protein Negative (Negative) Urine Glucose (UA) Negative (Negative) Urine Ketones Negative (Negative) Urine Blood Negative (Negative) Urine Nitrite Negative (Negative) Urine Bilirubin Negative (Negative) Urine Urobilinogen <2.0 (<2.0) mg/dL Ur Leukocyte Esterase Negative (Negative) Coronavirus (PCR) Not Detected (Not Detectd) 02/11/22 02/11/22 Range/Units 14:30 14:30 WBC (3.8-10.6) k/uL RBC (3.80-5.40) m/uL Hgb (11.4-16.0) gm/dL Hct (34.0-46.0) % MCV (80.0-100.0) fL MCH (25.0-35.0) pg MCHC (31.0-37.0) g/dL RDW (11.5-15.5) % Plt Count (150-450) k/uL MPV Neutrophils % % Lymphocytes % % Monocytes % % Eosinophils % % Basophils % % Neutrophils # (1.3-7.7) k/uL Lymphocytes # (1.0-4.8) k/uL Monocytes # (0-1.0) k/uL Eosinophils # (0-0.7) k/uL Basophils # (0-0.2) k/uL Sodium 140 (137-145) mmol/L Potassium 5.6 H (3.5-5.1) mmol/L Chloride 107 (98-107) mmol/L Carbon Dioxide 22 (22-30) mmol/L Anion Gap 11 mmol/L BUN 10 (7-17) mg/dL Creatinine 0.77 (0.52-1.04) mg/dL Est GFR (CKD-EPI)AfAm >90 (>60 ml/min/1.73 sqM) Est GFR (CKD-EPI)NonAf 88 (>60 ml/min/1.73 sqM) Glucose 83 (74-99) mg/dL Calcium 9.7 (8.4-10.2) mg/dL Magnesium 1.8 (1.6-2.3) mg/dL Total Bilirubin 1.3 (0.2-1.3) mg/dL AST 55 H (14-36) U/L ALT 62 H (4-34) U/L Alkaline Phosphatase 67 (38-126) U/L Troponin I 0.017 (0.000-0.034) ng/mL Total Protein 8.0 (6.3-8.2) g/dL Albumin 5.0 (3.5-5.0) g/dL Urine Color Urine Appearance (Clear) Urine pH (5.0-8.0) Ur Specific [place] (1.001-1.035) Urine Protein (Negative) Urine Glucose (UA) (Negative) Urine Ketones (Negative) Urine Blood (Negative) Urine Nitrite (Negative) Urine Bilirubin (Negative) Urine Urobilinogen (<2.0) mg/dL Ur Leukocyte Esterase (Negative) Coronavirus (PCR) (Not Detectd) Disposition Clinical Impression: Atypical chest pain, Hyperkalemia Disposition: HOME SELF-CARE Condition: Good Instructions (If sedation given, give patient instructions): Chest Pain (ED), Hyperkalemia (ED) Additional Instructions: Patient will follow-up on Sunday to get a repeat potassium. Is patient prescribed a controlled substance at d/c from ED?: No Referrals: Milan Bonds MD [Primary Care Provider] - 1-2 days Time of Disposition: 15:21
[2022-02-11 14:47] LABS: Appearance,Urine Clear (Clear); Bilirubin,Urine Negative (Negative); Blood,Urine Negative (Negative); Color,Urine Light Yellow; Glucose,Urine (UA) Negative (Negative); Ketones,Urine Negative (Negative); Leukocyte Esterase,Urine Negative (Negative); Nitrite,Urine Negative (Negative); PH, Urine 6.5 (5.0-8.0); Protein,Urine Negative (Negative); Urobilinogen,Urine <2.0 mg/dL (<2.0)
[2022-02-11 14:47] LABS: Basophils # (A) 0.1 k/uL (0-0.2); Basophils % (A) 1 %; Eosinophils # (A) 0.2 k/uL (0-0.7); Eosinophils % (A) 3 %; HGB 12.9 gm/dL (11.4-16.0); Lymphocytes # (A) 2.6 k/uL (1.0-4.8); Lymphocytes % (A) 41 %; MCH 30.2 pg (25.0-35.0); MCHC 32.3 g/dL (31.0-37.0); MCV 93.6 fL (80.0-100.0); Mean Platelet Volume 9.2; Monocytes # (A) 0.3 k/uL (0-1.0); Monocytes % (A) 4 %; Neutrophils % (A) 48 %; Platelet Count 173 k/uL (150-450); RBC 4.27 m/uL (3.80-5.40); RDW 12.1 % (11.5-15.5); WBC 6.3 k/uL (3.8-10.6)
[2022-02-11 14:56] LABS: ALT 62 U/L (4-34); AST 55 U/L (14-36); African American GFR (CKD) >90 (>60 ml/min/1.73 sqM); Alkaline Phosphatase 67 U/L (38-126); Anion Gap 11 mmol/L; Blood Urea Nitrogen 10 mg/dL (7-17); Calcium 9.7 mg/dL (8.4-10.2); Carbon Dioxide 22 mmol/L (22-30); Chloride 107 mmol/L (98-107); Glucose 83 mg/dL (74-99); Magnesium 1.8 mg/dL (1.6-2.3); Non-African American GFR(CKD) 88 (>60 ml/min/1.73 sqM); Potassium 5.6 mmol/L (3.5-5.1); Sodium 140 mmol/L (137-145); Total Bilirubin 1.3 mg/dL (0.2-1.3)
--- NOTE | 2022-02-11 15:01 | XR ---
EXAMINATION TYPE: XR chest 2V DATE OF EXAM: 02/11/2022 COMPARISON: 04/07/2021 HISTORY: Chest pain TECHNIQUE: Frontal and lateral views of the chest are obtained. FINDINGS: There is no focal air space opacity, pleural effusion, or pneumothorax seen. The cardiac silhouette size is within normal limits. The osseous structures are intact. IMPRESSION: No acute cardiopulmonary process.
== END 2022-02-11 15:46 | disposition home or self-care (01) ==
LOC: EC 12:27
DX: R07.89 Other chest pain (principal); E87.5 Hyperkalemia; E78.5 Hyperlipidemia, unspecified; E07.9 Disorder of thyroid, unspecified; I10 Essential (primary) hypertension; Z87.891 Personal history of nicotine dependence; Z88.6 Allergy status to analgesic agent; Z79.84 Long term (current) use of oral hypoglycemic drugs; Z79.890 Hormone replacement therapy; Z79.899 Other long term (current) drug therapy; Z20.822 Contact with and (suspected) exposure to COVID-19
CPT/HCPCS: 36415; 71046; 80053; 81003; 83735; 84484; 85025; 87635; 93005; 99285

== ENCOUNTER → 2022-02-14 | Outpatient (CLI) | payer OTHER ==
[2022-02-15 09:31] LABS: African American GFR (CKD) 97.6 (60.0-200.0); Albumin 4.2 g/dL (3.8-4.9); Albumin/Globulin Ratio 2.1 (1.60-3.17); Anion Gap 12.9 mmol/L (10.00-18.00); BUN/Creat Ratio 10.25 Ratio (12.00-20.00); Blood Urea Nitrogen 8.2 mg/dL (9.0-27.0); Calcium 9.4 mg/dL (8.7-10.3); Carbon Dioxide 20.1 mmol/L (20.0-27.5); Non-African American GFR(CKD) 84.2 (60.0-200.0); Potassium 4.5 mmol/L (3.5-5.5); Total Bilirubin 0.2 mg/dL (0.30-1.20); Total Protein 6.2 g/dL (6.2-8.2)
== END | disposition home or self-care (01) ==
LOC: LABWHC1 12:35
PROVIDERS: ATTEND Emergency Medicine
DX: Z00.00 Encounter for general adult medical examination without abnormal findings (principal)
CPT/HCPCS: 36415; 80053

== ENCOUNTER 2023-04-04 16:00 | Emergency (ER) | payer OTHER ==
[2023-04-04 16:32] VITALS: RESP 18; TEMP 98.2
--- NOTE | 2023-04-04 16:54 | ED ---
General Adult HPI - General Chief complaint: Nausea/Vomiting/Diarrhea Stated complaint: back pain-heart burn Time Seen by Provider: 04/04/23 16:18 Source: patient, RN notes reviewed Mode of arrival: ambulatory Limitations: no limitations - History of Present Illness Initial comments: 52-year-old female presents to the emergency department with chief complaint of "not feeling well." She states that yesterday she had 3 episodes of bilious vomiting and states that she noticed significant abdominal bloating. She admits to diarrhea. She states she is unsure if she has been running a fever. She has a history of SMA stenosis and is scheduled for surgery at [facility] next month. Denies cough, congestion, chest pain. - Related Data Home Medications Medication Instructions Recorded Confirmed Hydrocodone/Acetaminophen [Jachin 1 tab PO BID PRN 04/01/16 04/07/21 10-325] Metoprolol Tartrate 25 mg PO BID 04/01/16 04/07/21 metFORMIN HCL [Glucophage] 500 mg PO BID 04/01/16 04/07/21 Cetirizine HCl 10 mg PO DAILY 04/07/21 04/07/21 Latanoprost [Xalatan 0.005%] 1 drop BOTH EYES HS 04/07/21 04/07/21 Levothyroxine Sodium [Synthroid] 75 mcg PO DAILY 04/07/21 04/07/21 Losartan Potassium 100 mg PO DAILY 04/07/21 04/07/21 Montelukast Sodium [Singulair] 10 mg PO HS 04/07/21 04/07/21 Omeprazole [PriLOSEC] 20 mg PO DAILY 04/07/21 04/07/21 PARoxetine HCL [Paxil] 20 mg PO DAILY 04/07/21 04/07/21 Previous Rx's Medication Instructions Recorded methylPREDNISolone Dose Pack 4 mg PO DIRECTED #1 packet 04/08/21 [Medrol Dose Pack] tiZANidine [Zanaflex] 2 mg PO Q6HR PRN #12 tab 04/08/21 Allergies Allergy/AdvReac Type Severity Reaction Status Date / Time ibuprofen Allergy Unknown Verified 02/11/22 12:37 Penicillins Allergy Rash/Hives Verified 04/04/23 16:17 Review of Systems ROS Statement: Those systems with pertinent positive or pertinent negative responses have been documented in the HPI. ROS Other: All systems not noted in ROS Statement are negative. Past Medical History Past Medical History: GERD/Reflux, Hyperlipidemia, Hypertension Additional Past Medical History / Comment(s): Glaucoma, prediabetes, chronic low back pain, thyroid disorder History of Any Multi-Drug Resistant Organisms: None Reported Past Surgical History: Orthopedic Surgery Additional Past Surgical History / Comment(s): L knee sx Past Psychological History: No Psychological Hx Reported Smoking Status: Former smoker Past Alcohol Use History: Occasional Past Drug Use History: None Reported - Past Family History Father Family Medical History: Cancer General Exam Limitations: no limitations General appearance: alert, in no apparent distress Head exam: Present: atraumatic, normocephalic, normal inspection Eye exam: Present: normal appearance, PERRL, EOMI. Absent: scleral icterus, conjunctival injection, periorbital swelling ENT exam: Present: normal exam, normal oropharynx, mucous membranes moist Neck exam: Present: normal inspection, full ROM. Absent: tenderness, meningismus, lymphadenopathy Respiratory exam: Present: normal lung sounds bilaterally. Absent: respiratory distress, wheezes, rales, rhonchi, stridor Cardiovascular Exam: Present: regular rate, normal rhythm, normal heart sounds. Absent: systolic murmur, diastolic murmur, rubs, gallop, clicks GI/Abdominal exam: Present: soft, normal bowel sounds. Absent: distended, tenderness, guarding, rebound, rigid Extremities exam: Present: normal inspection, full ROM, normal capillary refill. Absent: tenderness, pedal edema, joint swelling, calf tenderness Back exam: Present: normal inspection. Absent: CVA tenderness (R), CVA tenderness (L) Neurological exam: Present: alert, oriented X3 Psychiatric exam: Present: normal affect, normal mood Skin exam: Present: warm, dry, intact, normal color. Absent: rash Course Vital Signs 04/04/23 04/04/23 16:14 21:06 Temperature 98.2 F 98.2 F Pulse Rate 90 76 Respiratory 18 18 Rate Blood Pressure 105/62 122/78 O2 Sat by Pulse 96 98 Oximetry Medical Decision Making - Medical Decision Making Was pt. sent in by a medical professional or institution (, PA, POULTRY HELPER, urgent care, hospital, or fci...) When possible be specific @ -[No] Did you speak to anyone other than the patient for history (EMS, parent, family, police, friend...)? What history was obtained from this source @ -[No] Did you review nursing and triage notes (agree or disagree)? Why? @ -[I reviewed and agree with nursing and triage notes] Were old charts reviewed (outside hosp., previous admission, EMS record, old EKG, old radiological studies, urgent care reports/EKG's, fci records)? Report findings @ -[EKG from last visit reviewed and compared to todays] Differential Diagnosis (chest pain, altered mental status, abdominal pain women, abdominal pain men, vaginal bleeding, weakness, fever, dyspnea, syncope, headache, dizziness, GI bleed, back pain, seizure, CVA, palpatations, mental health, musculoskeletal)? @ -[Differential Abdominal Pain Women: Appendicitis, Cholecystitis, diverticulosis, ischemic bowel, pancreatitis, hepatitis, UTI, gastroenteritis, AAA, incarcerated hernia, bowel obstruction, constipation, inflammatory bowel, hepatitis, peptic ulcer disease, splenic infa rction, perforated viscus, vulvitis, ovarian torsion, PID, kidney stone, placenta abruption, this is not meant to be an all-inclusive list] EKG interpreted by me (3pts min.). @ -[EKG at 1649 shows sinus rhythm rate 74, NJ 164, QRS 81, QTQTc [id number] his EKG is comparable to her last EKG on record] X-rays interpreted by me (1pt min.). @ -[None done] CT interpreted by me (1pt min.). @ -[None done] U/S interpreted by me (1pt. min.). @ -[None done] What testing was considered but not performed or refused? (CT, X-rays, U/S, labs)? Why? @ -[None] What meds were considered but not given or refused? Why? @ -[None] Did you discuss the management of the patient with other professionals (professionals i.e. , PA, POULTRY HELPER, lab, RT, psych nurse, social worker delinquency prevention, scada operator, teacher, cra officer, comp field case manager)? Give summary @ -[No] Was smoking cessation discussed for >3mins.? @ -[No] Was critical care preformed (if so, how long)? @ -[No] Were there social determinants of health that impacted care today? How? (Homelessness, low income, unemployed, alcoholism, drug addiction, transportation, low edu. Level, literacy, decrease access to med. care, alf, rehab)? @ -[No] Was there de-escalation of care discussed even if they declined (Discuss DNR or withdrawal of care, Hospice)? DNR status @ -[No] What co-morbidities impacted this encounter? (DM, HTN, Smoking, COPD, CAD, Cancer, CVA, ARF, Chemo, Hep., AIDS, mental health diagnosis, sleep apnea, morbid obesity)? @ -[None] Was patient admitted / discharged? Hospital course, mention meds given and route, prescriptions, significant lab abnormalities, going to OR and other [facility] [place] info. @ -[Discharged. Patient presented to emergency department chief complaint of overall "not feeling well" she admits to nausea with vomiting, diarrhea. Laboratory studies were obtained which showed WBC 6.5, hemoglobin 12.7, hematocrit 38.1; CMP shows sodium 140, potassium 3.8, creatinine 0.75; lactic acid 1.6; UA negative for nitrates, leukocyte esterase; Covid, influenza, RSV negative. Patient treated with zofran and morphine which significantly improved her symptoms. Shared decision-making utilized to decide against CTA abdomen as her labs are essentially unremarkable and symptom improvement after treatment. Patient is agreeing with this. Strict return precautions discussed. Patient stable at time of discharge. Case discussed with Dr. Orr] Undiagnosed new problem with uncertain prognosis? @ -[No] Drug Therapy requiring intensive monitoring for toxicity (Heparin, Nitro, Insulin, Cardizem)? @ -[No] Were any procedures done? @ -[No] Diagnosis/symptom? @ -[nausea, vomiting] Acute, or Chronic, or Acute on Chronic? @ -acute Uncomplicated (without systemic symptoms) or Complicated (systemic symptoms)? @ -uncomplicated Side effects of treatment? @ -[No] Exacerbation, Progression, or Severe Exacerbation? @ -[No] Poses a threat to life or bodily function? How? (Chest pain, [place], VA, pneumonia, PE, COPD, DKA, ARF, appy, cholecystitis, CVA, Diverticulitis, Homicidal, Suicidal, threat to staff... and all critical care pts) @ -[No] - Lab Data Result diagrams: 04/04/23 16:56 04/04/23 16:56 Lab Results 04/04/23 04/04/23 04/04/23 Range/Units 16:43 16:56 16:56 WBC 6.5 (3.8-10.6) k/uL RBC 4.13 (3.80-5.40) m/uL Hgb 12.7 (11.4-16.0) gm/dL Hct 38.1 (34.0-46.0) % MCV 92.2 (80.0-100.0) fL MCH 30.8 (25.0-35.0) pg MCHC 33.4 (31.0-37.0) g/dL RDW 13.8 (11.5-15.5) % Plt Count 197 (150-450) k/uL MPV 9.0 Neutrophils % 54 % Lymphocytes % 38 % Monocytes % 4 % Eosinophils % 3 % Basophils % 0 % Neutrophils # 3.5 (1.3-7.7) k/uL Lymphocytes # 2.4 (1.0-4.8) k/uL Monocytes # 0.3 (0-1.0) k/uL Eosinophils # 0.2 (0-0.7) k/uL Basophils # 0.0 (0-0.2) k/uL Sodium 140 (137-145) mmol/L Potassium 3.8 (3.5-5.1) mmol/L Chloride 105 (98-107) mmol/L Carbon Dioxide 22 (22-30) mmol/L Anion Gap 13 mmol/L BUN 13 (7-17) mg/dL Creatinine 0.75 (0.52-1.04) mg/dL Est GFR (CKD-EPI)AfAm >90 (>60 ml/min/1.73 sqM) Est GFR (CKD-EPI)NonAf >90 (>60 ml/min/1.73 sqM) Glucose 119 H (74-99) mg/dL Plasma Lactic Acid Chevy (0.7-2.0) mmol/L Calcium 9.6 (8.4-10.2) mg/dL Total Bilirubin 0.5 (0.2-1.3) mg/dL AST 22 (14-36) U/L ALT 19 (4-34) U/L Alkaline Phosphatase 63 (38-126) U/L Total Protein 7.2 (6.3-8.2) g/dL Albumin 4.4 (3.5-5.0) g/dL Amylase 46 (30-110) U/L Lipase 220 (23-300) U/L Urine Color Urine Appearance (Clear) Urine pH (5.0-8.0) Ur Specific [place] (1.001-1.035) Urine Protein (Negative) Urine Glucose (UA) (Negative) Urine Ketones (Negative) Urine Blood (Negative) Urine Nitrite (Negative) Urine Bilirubin (Negative) Urine Urobilinogen (<2.0) mg/dL Ur Leukocyte Esterase (Negative) Influenza Type A (PCR) Not Detected (Not Detectd) Influenza Type B (PCR) Not Detected (Not Detectd) RSV (PCR) Not Detected (Not Detectd) SARS-CoV-2 (PCR) Not Detected (Not Detectd) 04/04/23 04/04/23 Range/Units 16:56 16:56 WBC (3.8-10.6) k/uL RBC (3.80-5.40) m/uL Hgb (11.4-16.0) gm/dL Hct (34.0-46.0) % MCV (80.0-100.0) fL MCH (25.0-35.0) pg MCHC (31.0-37.0) g/dL RDW (11.5-15.5) % Plt Count (150-450) k/uL MPV Neutrophils % % Lymphocytes % % Monocytes % % Eosinophils % % Basophils % % Neutrophils # (1.3-7.7) k/uL Lymphocytes # (1.0-4.8) k/uL Monocytes # (0-1.0) k/uL Eosinophils # (0-0.7) k/uL Basophils # (0-0.2) k/uL Sodium (137-145) mmol/L Potassium (3.5-5.1) mmol/L Chloride (98-107) mmol/L Carbon Dioxide (22-30) mmol/L Anion Gap mmol/L BUN (7-17) mg/dL Creatinine (0.52-1.04) mg/dL Est GFR (CKD-EPI)AfAm (>60 ml/min/1.73 sqM) Est GFR (CKD-EPI)NonAf (>60 ml/min/1.73 sqM) Glucose (74-99) mg/dL Plasma Lactic Acid Chevy 1.6 (0.7-2.0) mmol/L Calcium (8.4-10.2) mg/dL Total Bilirubin (0.2-1.3) mg/dL AST (14-36) U/L ALT (4-34) U/L Alkaline Phosphatase (38-126) U/L Total Protein (6.3-8.2) g/dL Albumin (3.5-5.0) g/dL Amylase (30-110) U/L Lipase (23-300) U/L Urine Color Yellow Urine Appearance Clear (Clear) Urine pH 5.5 (5.0-8.0) Ur Specific [place] 1.025 (1.001-1.035) Urine Protein Trace (Negative) Urine Glucose (UA) Negative (Negative) Urine Ketones Negative (Negative) Urine Blood Negative (Negative) Urine Nitrite Negative (Negative) Urine Bilirubin Negative (Negative) Urine Urobilinogen <2.0 (<2.0) mg/dL Ur Leukocyte Esterase Negative (Negative) Influenza Type A (PCR) (Not Detectd) Influenza Type B (PCR) (Not Detectd) RSV (PCR) (Not Detectd) SARS-CoV-2 (PCR) (Not Detectd) Disposition Clinical Impression: Nausea and vomiting Disposition: HOME SELF-CARE Condition: Stable Instructions (If sedation given, give patient instructions): Acute Nausea and Vomiting (ED), Acute Diarrhea (ED) Additional Instructions: Please follow up with your doctors as scheduled. Return to the emergency department for new or worsening symptoms. Is patient prescribed a controlled substance at d/c from ED?: No Referrals: Milan Bonds MD [Primary Care Provider] - 1-2 days
[2023-04-04 17:58] LABS: Basophils % (A) 0 %; Eosinophils # (A) 0.2 k/uL (0-0.7); Eosinophils % (A) 3 %; HCT 38.1 % (34.0-46.0); HGB 12.7 gm/dL (11.4-16.0); Lymphocytes # (A) 2.4 k/uL (1.0-4.8); Lymphocytes % (A) 38 %; MCH 30.8 pg (25.0-35.0); MCHC 33.4 g/dL (31.0-37.0); MCV 92.2 fL (80.0-100.0); Monocytes # (A) 0.3 k/uL (0-1.0); Monocytes % (A) 4 %; Neutrophils # (A) 3.5 k/uL (1.3-7.7); Neutrophils % (A) 54 %; Platelet Count 197 k/uL (150-450); RBC 4.13 m/uL (3.80-5.40); RDW 13.8 % (11.5-15.5); WBC 6.5 k/uL (3.8-10.6)
[2023-04-04 18:08] LABS: African American GFR (CKD) >90 (>60 ml/min/1.73 sqM); Albumin 4.4 g/dL (3.5-5.0); Amylase 46 U/L (30-110); Anion Gap 13 mmol/L; Blood Urea Nitrogen 13 mg/dL (7-17); Calcium 9.6 mg/dL (8.4-10.2); Carbon Dioxide 22 mmol/L (22-30); Chloride 105 mmol/L (98-107); Glucose 119 mg/dL (74-99); Lipase 220 U/L (23-300); Non-African American GFR(CKD) >90 (>60 ml/min/1.73 sqM); Sodium 140 mmol/L (137-145); Total Bilirubin 0.5 mg/dL (0.2-1.3); Total Protein 7.2 g/dL (6.3-8.2)
[2023-04-04] MEDS ORDERED: ONDANSETRON 4 MG/2 ML VIAL IVP STA (18:25)
[2023-04-04] MEDS ORDERED: MORPHINE SULFATE 4 MG/ML SYRINGE IVP STA (18:25)
[2023-04-04] MEDS ORDERED: SODIUM CHLORIDE 0.9% 1,000 ML IV ONE (18:25)
[2023-04-04 18:26] LABS: Appearance,Urine Clear (Clear); Bilirubin,Urine Negative (Negative); Blood,Urine Negative (Negative); Color,Urine Yellow; Glucose,Urine (UA) Negative (Negative); Ketones,Urine Negative (Negative); Leukocyte Esterase,Urine Negative (Negative); Nitrite,Urine Negative (Negative); PH, Urine 5.5 (5.0-8.0); Protein,Urine Trace (Negative); Specific Gravity,Urine 1.025 (1.001-1.035); Urobilinogen,Urine <2.0 mg/dL (<2.0)
[2023-04-04 19:24] LABS: AST 22 U/L (14-36); Alkaline Phosphatase 63 U/L (38-126); Potassium 3.8 mmol/L (3.5-5.1)
[2023-04-04 19:36] LABS: ALT 19 U/L (4-34)
[2023-04-04] MEDS ORDERED: ONDANSETRON 4 MG ODT STARTER PACK 2 TAB BTL PO STA (20:11)
[2023-04-04 21:17] VITALS: BP 122/78; PULSE 76
== END 2023-04-04 21:10 | disposition home or self-care (01) ==
LOC: EC 16:00
DX: R11.2 Nausea with vomiting, unspecified (principal); E07.9 Disorder of thyroid, unspecified; I10 Essential (primary) hypertension; K21.9 Gastro-esophageal reflux disease without esophagitis; Z87.891 Personal history of nicotine dependence; Z79.899 Other long term (current) drug therapy; Z79.890 Hormone replacement therapy; Z20.822 Contact with and (suspected) exposure to COVID-19; Z88.0 Allergy status to penicillin; Z88.6 Allergy status to analgesic agent
CPT/HCPCS: 99284; 96374; 96375; 96361; 36415; 93005; 80053; 82150; 83605; 83690; 85025; 81003; 87636; J2270; J2405; S0119

== ENCOUNTER 2023-05-13 00:42 | Emergency (ER) | payer OTHER ==
[2023-05-13] MEDS ORDERED: SODIUM CHLORIDE 0.9% 1,000 ML IV STA (01:37)
[2023-05-13] MEDS ORDERED: HYDROmorphone 1 MG/ML 1 ML SYRINGE IVP STA (01:38)
[2023-05-13 02:03] LABS: Anisocytosis Slight; Basophils % (A) 0 %; Eosinophils # (A) 0.3 k/uL (0-0.7); Eosinophils % (A) 2 %; HCT 34.3 % (34.0-46.0); HGB 11.1 gm/dL (11.4-16.0); Lymphocytes # (A) 2.7 k/uL (1.0-4.8); Lymphocytes % (A) 25 %; MCHC 32.3 g/dL (31.0-37.0); MCV 92.9 fL (80.0-100.0); Monocytes # (A) 0.6 k/uL (0-1.0); Monocytes % (A) 5 %; Neutrophils # (A) 6.9 k/uL (1.3-7.7); Neutrophils % (A) 65 %; Platelet Count 275 k/uL (150-450); RBC 3.69 m/uL (3.80-5.40); RDW 16.9 % (11.5-15.5); WBC 10.6 k/uL (3.8-10.6)
[2023-05-13 02:10] LABS: ALT 26 U/L (4-34); AST 21 U/L (14-36); African American GFR (CKD) >90 (>60 ml/min/1.73 sqM); Albumin 3.8 g/dL (3.5-5.0); Alkaline Phosphatase 70 U/L (38-126); Amylase 43 U/L (30-110); Anion Gap 10 mmol/L; Blood Urea Nitrogen 10 mg/dL (7-17); Calcium 9.2 mg/dL (8.4-10.2); Carbon Dioxide 20 mmol/L (22-30); Chloride 106 mmol/L (98-107); Glucose 105 mg/dL (74-99); Lipase 364 U/L (23-300); Non-African American GFR(CKD) >90 (>60 ml/min/1.73 sqM); Potassium 4.3 mmol/L (3.5-5.1); Sodium 136 mmol/L (137-145); Total Bilirubin 0.5 mg/dL (0.2-1.3); Total Protein 6.5 g/dL (6.3-8.2)
[2023-05-13 02:21] LABS: Amorphous Sediment,Urine Rare /hpf; Hyaline Casts,Urine 4 /lpf (0-2); Mucus,Urine Rare /hpf; RBC,Urine <1 /hpf (0-5); Squamous Epithelial Cell,Urine 12 /hpf (0-4); WBC,Urine 6 /hpf (0-5)
[2023-05-13 02:22] LABS: Appearance,Urine Clear (Clear); Bilirubin,Urine Negative (Negative); Color,Urine Light Yellow; Glucose,Urine (UA) Negative (Negative); Ketones,Urine Negative (Negative); PH, Urine 5.5 (5.0-8.0); Protein,Urine Negative (Negative); Specific Gravity,Urine 1.025 (1.001-1.035)
[2023-05-13 02:23] LABS: Blood,Urine Negative (Negative); Leukocyte Esterase,Urine Negative (Negative); Nitrite,Urine Negative (Negative); Urobilinogen,Urine 0.2 mg/dL (<2.0)
[2023-05-13 02:24] LABS: INR 0.9 (<1.2); Prothrombin Time 10.4 sec (10.0-12.5)
[2023-05-13 02:25] LABS: Partial Thromboplastin Time 25.1 sec (22.0-30.0)
[2023-05-13 03:28] VITALS: RESP 16
--- NOTE | 2023-05-13 04:12 | ED ---
Abdominal Pain HPI <Michael Lawrence - Last Filed: 05/13/23 08:32> - General Source: patient Mode of arrival: ambulatory Limitations: no limitations <Harsha Evans - Last Filed: 05/14/23 04:15> - General Chief Complaint: Abdominal Pain Stated Complaint: Recheck Time Seen by Provider: 05/13/23 01:10 - History of Present Illness Initial Comments: 53-year-old female presenting with chief complaint of abdominal pain. Patient has a recent history of mesenteric thrombus. Patient was seen at [facility] and had a mesenteric angiogram performed. She was started on xarelto. Patient is having pain similar to when she had her blood clot. This is a vague burning pain in the abdomen. No nausea or vomiting. No alleviating or aggravating factors. No chest pain or difficulty breathing. (Harsha Evans) - Related Data Home Medications Medication Instructions Recorded Confirmed Hydrocodone/Acetaminophen [[place] 1 tab PO BID PRN 04/01/16 04/07/21 10-325] Metoprolol Tartrate 25 mg PO BID 04/01/16 04/07/21 metFORMIN HCL [Glucophage] 500 mg PO BID 04/01/16 04/07/21 Cetirizine HCl 10 mg PO DAILY 04/07/21 04/07/21 Latanoprost [Xalatan 0.005%] 1 drop BOTH EYES HS 04/07/21 04/07/21 Levothyroxine Sodium [Synthroid] 75 mcg PO DAILY 04/07/21 04/07/21 Losartan Potassium 100 mg PO DAILY 04/07/21 04/07/21 Montelukast Sodium [Singulair] 10 mg PO HS 04/07/21 04/07/21 Omeprazole [PriLOSEC] 20 mg PO DAILY 04/07/21 04/07/21 PARoxetine HCL [Paxil] 20 mg PO DAILY 04/07/21 04/07/21 Previous Rx's Medication Instructions Recorded methylPREDNISolone Dose Pack 4 mg PO DIRECTED #1 packet 04/08/21 [Medrol Dose Pack] tiZANidine [Zanaflex] 2 mg PO Q6HR PRN #12 tab 04/08/21 Allergies Allergy/AdvReac Type Severity Reaction Status Date / Time ibuprofen Allergy Unknown Verified 05/13/23 00:51 Penicillins Allergy Rash/Hives Verified 05/13/23 00:51 Review of Systems ROS Other: All systems not noted in ROS Statement are negative. <Michael Lawrence - Last Filed: 05/13/23 08:32> ROS Other: All systems not noted in ROS Statement are negative. <Harsha Evans - Last Filed: 05/14/23 04:15> ROS Statement: Those systems with pertinent positive or pertinent negative responses have been documented in the HPI. Past Medical History Past Medical History: GERD/Reflux, Hyperlipidemia, Hypertension Additional Past Medical History / Comment(s): Glaucoma, prediabetes, chronic low back pain, thyroid disorder History of Any Multi-Drug Resistant Organisms: None Reported Past Surgical History: Orthopedic Surgery Additional Past Surgical History / Comment(s): L knee sx Past Psychological History: No Psychological Hx Reported Smoking Status: Current every day smoker Past Alcohol Use History: Occasional Past Drug Use History: None Reported - Past Family History Father Family Medical History: Cancer <Harsha Evans - Last Filed: 05/14/23 04:15> General Exam Limitations: no limitations General appearance: alert, in no apparent distress Head exam: Present: atraumatic, normocephalic, normal inspection Eye exam: Present: normal appearance, EOMI Neck exam: Present: normal inspection, full ROM Respiratory exam: Present: normal lung sounds bilaterally. Absent: respiratory distress, wheezes, rales, rhonchi, stridor Cardiovascular Exam: Present: regular rate, normal rhythm, normal heart sounds. Absent: systolic murmur, diastolic murmur, rubs, gallop, clicks GI/Abdominal exam: Present: soft, tenderness. Absent: distended, guarding, rebound, rigid Neurological exam: Present: alert, oriented X3 Psychiatric exam: Present: normal affect, normal mood Skin exam: Present: warm, dry, intact, normal color. Absent: rash <Harsha Evans - Last Filed: 05/14/23 04:15> Course Vital Signs 05/13/23 05/13/23 05/13/23 00:47 01:51 06:29 Temperature 97.9 F 98.3 F Pulse Rate 79 72 70 Respiratory 18 16 16 Rate Blood Pressure 126/69 118/76 129/81 O2 Sat by Pulse 96 97 98 Oximetry 05/13/23 05/13/23 07:51 08:48 Temperature 98 F 98 F Pulse Rate 85 82 Respiratory 16 16 Rate Blood Pressure 121/87 120/79 O2 Sat by Pulse 99 99 Oximetry Medical Decision Making - Lab Data Result diagrams: 05/13/23 01:44 05/13/23 01:44 <Michael Lawrence - Last Filed: 05/13/23 08:32> - Lab Data Result diagrams: 05/13/23 01:44 05/13/23 01:44 <Harsha Evans - Last Filed: 05/14/23 04:15> - Medical Decision Making Was patient admitted / discharged? Hospital course, mention meds given and route, prescriptions, significant lab abnormalities, going to OR and other pertinent info. @ -Patient's CT of the abdomen and pelvis showed no acute abnormality at this time and it does show a patent stent. I went back into the room to reevaluate the patient she had no abdominal pain she was sleeping and when I palpate her she had no abdominal pain. Patient states she's been a follow-up with her surgeon and give them a call tomorrow Undiagnosed new problem with uncertain prognosis? @ -No Drug Therapy requiring intensive monitoring for toxicity (Heparin, Nitro, Insulin, Cardizem)? @ -No Were any procedures done? @ -No Diagnosis/symptom? @ -Abdominal pain Acute, or Chronic, or Acute on Chronic? @ -Acute Uncomplicated (without systemic symptoms) or Complicated (systemic symptoms)? @ -Complicated Side effects of treatment? @ -No Exacerbation, Progression, or Severe Exacerbation? @ -No Poses a threat to life or bodily function? How? (Chest pain, [place], [place], pneumonia, PE, COPD, DKA, ARF, appy, cholecystitis, CVA, Diverticulitis, Homicidal, Suicid al, threat to staff... and all critical care pts) @ -No (Michael Lawrence) Was pt. sent in by a medical professional or institution (, PA, HEATING TECHNICIAN, urgent care, hospital, or skilled nursing...) When possible be specific @ -[No] Did you speak to anyone other than the patient for history (EMS, parent, family, police, friend...)? What history was obtained from this source @ -[No] Did you review nursing and triage notes (agree or disagree)? Why? @ -[I reviewed and agree with nursing and triage notes] Were old charts reviewed (outside hosp., previous admission, EMS record, old EKG, old radiological studies, urgent care reports/EKG's, skilled nursing records)? Report findings @ -[No old charts were reviewed] Differential Diagnosis (chest pain, altered mental status, abdominal pain women, abdominal pain men, vaginal bleeding, weakness, fever, dyspnea, syncope, headache, dizziness, GI bleed, back pain, seizure, CVA, palpatations, mental health, musculoskeletal)? @ -MDM Differential Abdominal Pain Women: Appendicitis, Cholecystitis, diverticulosis, ischemic bowel, pancreatitis, hepatitis, UTI, gastroenteritis, AAA, incarcerated hernia, bowel obstruction, constipation, inflammatory bowel, hepatitis, peptic ulcer disease, splenic infarction, perforated viscus, vulvitis, ovarian torsion, PID, kidney stone, placenta abruption... This is not meant to be an all-inclusive list EKG interpreted by me (3pts min.). @ -[As above] X-rays interpreted by me (1pt min.). @ -[None done] U/S interpreted by me (1pt. min.). @ -[None done] What testing was considered but not performed or refused? (CT, X-rays, U/S, labs)? Why? @ -[None] What meds were considered but not given or refused? Why? @ -[None] Did you discuss the management of the patient with other professionals ( professionals i.e. , PA, HEATING TECHNICIAN, lab, RT, psych nurse, social science analyst, aerospace medicine physician, teacher, department of natural resources officer, adult protective caseworker)? Give summary @ -[No] Was smoking cessation discussed for >3mins.? @ -[No] Was critical care preformed (if so, how long)? @ -[No] Were there social determinants of health that impacted care today? How? (Homelessness, low income, unemployed, alcoholism, drug addiction, t ransportation, low edu. Level, literacy, decrease access to med. care, [facility], rehab)? @ -[No] Was there de-escalation of care discussed even if they declined (Discuss DNR or withdrawal of care, Hospice)? DNR status @ -[No] What co-morbidities impacted this encounter? (DM, HTN, Smoking, COPD, CAD, Cancer, CVA, ARF, Chemo, Hep., AIDS, mental health diagnosis, sleep apnea, morbid obesity)? @ -[None] Was patient admitted / discharged? Hospital course, mention meds given and route, prescriptions, significant lab abnormalities, going to OR and other pertinent info. @ -To 3-year-old female presenting with chief complaint of abdominal pain. Patient is concerned due to a history of mesenteric thrombus. History of physical exam were conducted. Patient is provided with pain medication. Lab work and CT are ordered. CT report is pending and patient is signed out to my attending for further management and disposition. (Harsha Evans) - Lab Data Lab Results 05/13/23 05/13/23 05/13/23 Range/Units 01:44 01:44 01:44 WBC 10.6 (3.8-10.6) k/uL RBC 3.69 L (3.80-5.40) m/uL Hgb 11.1 L (11.4-16.0) gm/dL Hct 34.3 (34.0-46.0) % MCV 92.9 (80.0-100.0) fL MCH 30.0 (25.0-35.0) pg MCHC 32.3 (31.0-37.0) g/dL RDW 16.9 H (11.5-15.5) % Plt Count 275 (150-450) k/uL MPV 9.0 Neutrophils % 65 % Lymphocytes % 25 % Monocytes % 5 % Eosinophils % 2 % Basophils % 0 % Neutrophils # 6.9 (1.3-7.7) k/uL Lymphocytes # 2.7 (1.0-4.8) k/uL Monocytes # 0.6 (0-1.0) k/uL Eosinophils # 0.3 (0-0.7) k/uL Basophils # 0.0 (0-0.2) k/uL Anisocytosis Slight PT 10.4 (10.0-12.5) sec INR 0.9 (<1.2) APTT 25.1 (22.0-30.0) sec Sodium 136 L (137-145) mmol/L Potassium 4.3 (3.5-5.1) mmol/L Chloride 106 (98-107) mmol/L Carbon Dioxide 20 L (22-30) mmol/L Anion Gap 10 mmol/L BUN 10 (7-17) mg/dL Creatinine 0.60 (0.52-1.04) mg/dL Est GFR (CKD-EPI)AfAm >90 (>60 ml/min/1.73 sqM) Est GFR (CKD-EPI)NonAf >90 (>60 ml/min/1.73 sqM) Glucose 105 H (74-99) mg/dL Plasma Lactic Acid Chevy (0.7-2.0) mmol/L Calcium 9.2 (8.4-10.2) mg/dL Total Bilirubin 0.5 (0.2-1.3) mg/dL AST 21 (14-36) U/L ALT 26 (4-34) U/L Alkaline Phosphatase 70 (38-126) U/L Total Protein 6.5 (6.3-8.2) g/dL Albumin 3.8 (3.5-5.0) g/dL Amylase 43 (30-110) U/L Lipase 364 H (23-300) U/L Urine Color Urine Appearance (Clear) Urine pH (5.0-8.0) Ur Specific Hugo (1.001-1.035) Urine Protein (Negative) Urine Glucose (UA) (Negative) Urine Ketones (Negative) Urine Blood (Negative) Urine Nitrite (Negative) Urine Bilirubin (Negative) Urine Urobilinogen (<2.0) mg/dL Ur Leukocyte Esterase (Negative) Urine RBC (0-5) /hpf Urine WBC (0-5) /hpf Ur Squamous Epith Cells (0-4) /hpf Amorphous Sediment (None) /hpf Hyaline Casts (0-2) /lpf Urine Mucus (None) /hpf 05/13/23 05/13/23 Range/Units 01:44 01:54 WBC (3.8-10.6) k/uL RBC (3.80-5.40) m/uL Hgb (11.4-16.0) gm/dL Hct (34.0-46.0) % MCV (80.0-100.0) fL MCH (25.0-35.0) pg MCHC (31.0-37.0) g/dL RDW (11.5-15.5) % Plt Count (150-450) k/uL MPV Neutrophils % % Lymphocytes % % Monocytes % % Eosinophils % % Basophils % % Neutrophils # (1.3-7.7) k/uL Lymphocytes # (1.0-4.8) k/uL Monocytes # (0-1.0) k/uL Eosinophils # (0-0.7) k/uL Basophils # (0-0.2) k/uL Anisocytosis PT (10.0-12.5) sec INR (<1.2) APTT (22.0-30.0) sec Sodium (137-145) mmol/L Potassium (3.5-5.1) mmol/L Chloride (98-107) mmol/L Carbon Dioxide (22-30) mmol/L Anion Gap mmol/L BUN (7-17) mg/dL Creatinine (0.52-1.04) mg/dL Est GFR (CKD-EPI)AfAm (>60 ml/min/1.73 sqM) Est GFR (CKD-EPI)NonAf (>60 ml/min/1.73 sqM) Glucose (74-99) mg/dL Plasma Lactic Acid Chevy 1.7 (0.7-2.0) mmol/L Calcium (8.4-10.2) mg/dL Total Bilirubin (0.2-1.3) mg/dL AST (14-36) U/L ALT (4-34) U/L Alkaline Phosphatase (38-126) U/L Total Protein (6.3-8.2) g/dL Albumin (3.5-5.0) g/dL Amylase (30-110) U/L Lipase (23-300) U/L Urine Color Light Yellow Urine Appearance Clear (Clear) Urine pH 5.5 (5.0-8.0) Ur Specific Hugo 1.025 (1.001-1.035) Urine Protein Negative (Negative) Urine Glucose (UA) Negative (Negative) Urine Ketones Negative (Negative) Urine Blood Negative (Negative) Urine Nitrite Negative (Negative) Urine Bilirubin Negative (Negative) Urine Urobilinogen 0.2 (<2.0) mg/dL Ur Leukocyte Esterase Negative (Negative) Urine RBC <1 (0-5) /hpf Urine WBC 6 H (0-5) /hpf Ur Squamous Epith Cells 12 H (0-4) /hpf Amorphous Sediment Rare H (None) /hpf Hyaline Casts 4 H (0-2) /lpf Urine Mucus Rare H (None) /hpf Disposition Is patient prescribed a controlled substance at d/c from ED?: No Time of Disposition: 08:34 <Michael Lawrence - Last Filed: 05/13/23 08:32> <Harsha Evans - Last Filed: 05/14/23 04:15> Clinical Impression: Abdominal pain Disposition: HOME SELF-CARE Instructions (If sedation given, give patient instructions): Abdominal Pain (ED) Referrals: Milan Bonds MD [Primary Care Provider] - 1-2 days
[2023-05-13 07:57] VITALS: TEMP 98
--- NOTE | 2023-05-13 08:20 | CT ---
EXAMINATION TYPE: CT angio abdomen pelvis DATE OF EXAM: 05/13/2023 COMPARISON: None INDICATION: Burning in abdomen, mesenteric clot DLP: 5 3.5 mGycm, Automated exposure control for dose reduction was used. CONTRAST: 100 mL of Isovue 300. Study performed TECHNIQUE: Axial images were obtained from above the diaphragm to the pubic rami in the axial plane a t 5 mm thick sections. Reconstructed images are reviewed on the computer in the coronal plane. FINDINGS: Limited CT sections are obtained the lung bases. The lung bases are clear. CTA ABDOMEN: Distal thoracic aorta tapers normally. Celiac axis stent is present and appears patent. Small mesente blanche artery is inferior better visualized on the sagittal reconstructed images appears patent. Inferio r mesenteric artery is patent. Bilateral renal arteries appear normal. No stenosis or obstruction fro m thrombus is evident. Liver: Normal Spleen: Normal Pancreas: Normal Adrenal glands: The adrenal glands are normal. Gallbladder: Normal Kidneys: No masses are evident. No hydronephrosis is present. No cysts are present. Inferior vena cava: Normal. CT PELVIS: Loops of bowel within the abdomen and pelvis are normal. This study is without oral contrast limi ting bowel evaluation. Appendix: Normal as visualized. Urinary bladder: Normal. Genitourinary structures: Uterus and adnexa appear normal. Osseous structures: No suspicious lytic or sclerotic lesions. IMPRESSION: 1. Celiac axis stent is patent. Superior mesenteric artery appears somewhat small but patent. No foc al stenosis or obstruction evident. Inferior mesenteric artery is patent
[2023-05-13 09:03] VITALS: BP 120/79; PULSE 82
== END 2023-05-13 08:51 | disposition home or self-care (01) ==
LOC: EC 00:42
DX: R10.9 Unspecified abdominal pain (principal); I10 Essential (primary) hypertension; K21.9 Gastro-esophageal reflux disease without esophagitis; F17.200 Nicotine dependence, unspecified, uncomplicated; Z79.899 Other long term (current) drug therapy; Z88.6 Allergy status to analgesic agent; Z88.0 Allergy status to penicillin
CPT/HCPCS: 36415; 80053; 82150; 83605; 83690; 85025; 85610; 85730; 81003; 74174; 96374; 96361; 99284; J1170; Q9967

== ENCOUNTER → 2023-09-21 | Outpatient (CLI) | payer OTHER ==
[2023-09-21 20:21] LABS: Gliadin AB IgA, Deaminated Negative (Negative); Gliadin AB IgA, Unit <0.5 U/mL; Gliadin AB IgG, Deaminated Negative (Negative); Gliadin AB IgG, Unit <0.4 U/mL
== END | disposition home or self-care (01) ==
LOC: LABWHC1 14:07
PROVIDERS: ATTEND Internal Medicine Gastroenterology
DX: K52.9 Noninfective gastroenteritis and colitis, unspecified (principal)
CPT/HCPCS: 36415; 83516; 83993; 86140

== ENCOUNTER 2024-02-28 16:01 | Emergency (ER) | payer OTHER ==
[2024-02-28 16:08] VITALS: RESP 18
--- NOTE | 2024-02-28 16:19 | ED ---
URI HPI - General Chief Complaint: Upper Respiratory Infection Stated Complaint: resp. symptoms, lethargy Time Seen by Provider: 02/28/24 16:18 Source: patient, RN notes reviewed Mode of arrival: ambulatory Limitations: no limitations - History of Present Illness Initial Comments: This is a 53-year-old female with a history of COPD presents emergency dep artment complaint of respiratory infection symptoms over the past 7 to 10 days. Patient states that she called her primary care provider office where she was sent in a prescription for azithromycin was unable to schedule an appointment outpatient. She states that she has had a worsening productive cough and felt chilled. Denies nausea, vomiting, chest pain, shortness of breath or difficulty breathing. Patient states that she has an albuterol inhaler at home that she uses as needed. Denies daily steroid use. - Related Data Home Medications Medication Instructions Recorded Confirmed Hydrocodone/Acetaminophen [[place] 1 tab PO BID PRN 04/01/16 04/07/21 10-325] Metoprolol Tartrate 25 mg PO BID 04/01/16 04/07/21 metFORMIN HCL [Glucophage] 500 mg PO BID 04/01/16 04/07/21 Cetirizine HCl 10 mg PO DAILY 04/07/21 04/07/21 Latanoprost [Xalatan 0.005%] 1 drop BOTH EYES HS 04/07/21 04/07/21 Levothyroxine Sodium [Synthroid] 75 mcg PO DAILY 04/07/21 04/07/21 Losartan Potassium 100 mg PO DAILY 04/07/21 04/07/21 Montelukast Sodium [Singulair] 10 mg PO HS 04/07/21 04/07/21 Omeprazole [PriLOSEC] 20 mg PO DAILY 04/07/21 04/07/21 PARoxetine HCL [Paxil] 20 mg PO DAILY 04/07/21 04/07/21 Previous Rx's Medication Instructions Recorded methylPREDNISolone Dose Pack 4 mg PO DIRECTED #1 packet 04/08/21 [Medrol Dose Pack] tiZANidine [Zanaflex] 2 mg PO Q6HR PRN #12 tab 04/08/21 predniSONE 50 mg PO DAILY #5 tab 02/28/24 Allergies Allergy/AdvReac Type Severity Reaction Status Date / Time ibuprofen Allergy Unknown Verified 02/28/24 16:08 Penicillins Allergy Rash/Hives Verified 02/28/24 16:08 Review of Systems ROS Statement: Those systems with pertinent positive or pertinent negative responses have been documented in the HPI. ROS Other: All systems not noted in ROS Statement are negative. Past Medical History Past Medical History: GERD/Reflux, Hyperlipidemia, Hypertension Additional Past Medical History / Comment(s): Glaucoma, prediabetes, chronic low back pain, thyroid disorder History of Any Multi-Drug Resistant Organisms: None Reported Past Surgical History: Orthopedic Surgery Additional Past Surgical History / Comment(s): L knee sx Past Psychological History: No Psychological Hx Reported Smoking Status: Current every day smoker Past Alcohol Use History: Occasional Past Drug Use History: None Reported - Past Family History Father Family Medical History: Cancer General Exam Limitations: no limitations General appearance: alert, in no apparent distress Head exam: Present: atraumatic, normocephalic, normal inspection Eye exam: Present: normal appearance, PERRL, EOMI. Absent: scleral icterus, conjunctival injection, periorbital swelling ENT exam: Present: normal exam, mucous membranes moist Neck exam: Present: normal inspection. Absent: tenderness, meningismus, lymphadenopathy Respiratory exam: Present: normal lung sounds bilaterally. Absent: respiratory distress, wheezes, rales, rhonchi, stridor Cardiovascular Exam: Present: regular rate, normal rhythm, normal heart sounds. Absent: systolic murmur, diastolic murmur, rubs, gallop, clicks GI/Abdominal exam: Present: soft, normal bowel sounds. Absent: distended, tenderness, guarding, rebound, rigid Extremities exam: Present: normal inspection, full ROM, normal capillary refill. Absent: tenderness, pedal edema, joint swelling, calf tenderness Course Vital Signs 02/28/24 02/28/24 02/28/24 16:05 17:59 18:05 Temperature 97.7 F Pulse Rate 84 84 88 Respiratory 18 Rate Blood Pressure 109/74 O2 Sat by Pulse 96 Oximetry 02/28/24 18:07 Temperature 98.2 F Pulse Rate 82 Respiratory 18 Rate Blood Pressure 112/70 O2 Sat by Pulse 97 Oximetry Medical Decision Making - Medical Decision Making Was pt. sent in by a medical professional or institution (, PA, SHUCKER, urgent care, hospital, or correction...) When possible be specific @ -No Did you speak to anyone other than the patient for history (EMS, parent, family, police, friend...)? What history was obtained from this source @ -No Did you review nursing and triage notes (agree or disagree)? Why? @ -I reviewed and agree with nursing and triage notes Were old charts reviewed (outside hosp., previous admission, EMS record, old EKG, old radiological studies, urgent care reports/EKG's, correction records)? Report findings @ -No old charts were reviewed Differential Diagnosis (chest pain, altered mental status, abdominal pain women, abdominal pain men, vaginal bleeding, weakness, fever, dyspnea, syncope, headache, dizziness, GI bleed, back pain, seizure, CVA, palpatations, mental health, musculoskeletal)? @ -COVID 19, RSV, influenza, pneumonia, acute bronchitis, URI, this list is not all inclusive EKG interpreted by me (3pts min.). @ -None X-rays interpreted by me (1pt min.). @ -Chest x-ray no acute cardiopulmonary process or disease CT interpreted by me (1pt min.). @ -None done U/S interpreted by me (1pt. min.). @ -None done What testing was considered but not performed or refused? (CT, X-rays, U/S, labs)? Why? @ -None What meds were considered but not given or refused? Why? @ -None Did you discuss the management of the patient with other professionals (professionals i.e. , PA, SHUCKER, lab, RT, psych nurse, social services manager, telecom billing analyst, teacher, human resources officer, casework manager)? Give summary @ -No Was smoking cessation discussed for >3mins.? @ -No Was critical care preformed (if so, how long)? @ -No Were there social determinants of health that impacted care today? How? (Homelessness, low income, unemployed, alcoholism, drug addiction, transportation, low edu. Level, literacy, decrease access to med. care, fdc, rehab)? @ -No Was there de-escalation of care discussed even if they declined (Discuss DNR or withdrawal of care, Hospice)? DNR status @ -No What co-morbidities impacted this encounter? (DM, HTN, Smoking, COPD, CAD, Cancer, CVA, ARF, Chemo, Hep., AIDS, mental health diagnosis, sleep apnea, morbid obesity)? @ -None Was patient admitted / discharged? Hospital course, mention meds given and route, prescriptions, significant lab abnormalities, going to OR and other pertinent info. @ -Discharge. 53-year-old female chief complaint of productive cough and bodyaches. Physical examination benign for acute findings. Patient's vitals are stable and she is no signs of respiratory distress. Patient is treated with a dose of Solu-Medrol pending results of chest x-ray and viral swab but she does have a history of COPD. X-ray negative for acute process, negative for COVID, flu, RSV. Patient's provided with DuoNeb breathing treatment and discharged home in stable condition. She is provided with a short course of steroids that she will take 1 tablet 5 times per day and instructed to follow-up outpatient with her primary care provider for further evaluation. Patient has been on azithromycin prescribed by her primary care provider therefore additional prescription for antibiotics are deferred at this time. All questions answered at bedside and strict return parameters kenna the patient she is verbalized understanding. Case discussed with Dr. Larson Undiagnosed new problem with uncertain prognosis? @ -No Drug Therapy requiring intensive monitoring for toxicity (Heparin, Nitro, Insulin, Cardizem)? @ -No Were any procedures done? @ -No Diagnosis/symptom? @ -COPD exacerbation Acute, or Chronic, or Acute on Chronic? @ -Acute Uncomplicated (without systemic symptoms) or Complicated (systemic symptoms)? @ -Uncomplicated Side effects of treatment? @ -No Exacerbation, Progression, or Severe Exacerbation? @ -No Poses a threat to life or bodily function? How? (Chest pain, [place], [place], pneumonia, PE, COPD, DKA, ARF, appy, cholecystitis, CVA, Diverticulitis, Homicidal, Suicidal, threat to staff... and all critical care pts) @ -No - Lab Data Lab Results 02/28/24 Range/Units 16:36 Influenza Type A (PCR) Not Detected (Not Detectd) Influenza Type B (PCR) Not Detected (Not Detectd) RSV (PCR) Not Detected (Not Detectd) SARS-CoV-2 (PCR) Not Detected (Not Detectd) Disposition Clinical Impression: COPD exacerbation Disposition: HOME SELF-CARE Condition: Good Instructions (If sedation given, give patient instructions): COPD (Chronic Obstructive Pulmonary Disease) (ED) Additional Instructions: Return to the emergency department for any new or worsening symptoms. Complete full course of steroids as prescribed. Recommend follow-up with your primary care provider for further evaluation. Prescriptions: predniSONE 50 mg PO DAILY #5 tab Is patient prescribed a controlled substance at d/c from ED?: No Referrals: Milan Bonds MD [Primary Care Provider] - 1-2 days Time of Disposition: 17:59
[2024-02-28] MEDS: methylPREDNISolone SOD SUCCI 125 MG/2 ML VIAL IM ONE (16:33)
--- NOTE | 2024-02-28 17:06 | XR ---
EXAMINATION TYPE: XR chest 2V DATE OF EXAM: 02/28/2024 4:42 PM CLINICAL INDICATION: Female, 53 years old with history of chills, productive cough, hx COPD; [facility] COMPARISON: Chest radiographs from 02/11/2022. TECHNIQUE: XR chest 2V Frontal view of the chest. FINDINGS: Lungs/Pleura: There is no evidence of pleural effusion, focal consolidation, or pneumothorax. Pulmonary vascularity: Unremarkable. Heart/mediastinum: Cardiomediastinal silhouette is unremarkable. Musculoskeletal: No acute osseous pathology. IMPRESSION: No acute cardiopulmonary disease/process. [facility] Eugenia Veras, , 02/28/2024 5:04 PM
[2024-02-28] MEDS: IPRATROPIUM-ALBUTEROL 3 ML NEB INHALATION STA (17:56)
[2024-02-28 18:09] VITALS: BP 112/70; PULSE 82; TEMP 98.2
== END 2024-02-28 18:10 | disposition home or self-care (01) ==
LOC: EC 16:01
CPT/HCPCS: 71046; 87636; 94640; 96372; 99284